=== PATIENT | male | born 2000 | race Caucasian/White ===

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

== ENCOUNTER 2018-03-24 18:49 | Inpatient (IN) | payer MEDICAID, OTHER ==
[2018-03-24 19:28] LABS: HEMATOCRIT 44.3 % (42.0-52.0); HEMOGLOBIN 15.3 g/dl (13.5-17.5); MEAN CORPUSCULAR HEMOGLOBIN 30.1 pg (27.0-33.0); MEAN CORPUSCULAR HGB CONC 34.5 g/dl (32.0-36.5); PLATELET COUNT, AUTOMATED 359 10^3/uL (150-450); RED BLOOD COUNT 5.09 10^6/uL (4.30-6.10); RED CELL DISTRIBUTION WIDTH 12.1 % (11.5-14.5); WHITE BLOOD COUNT 9.8 10^3/uL (4.0-10.0)
[2018-03-24] MEDS: NS 1,000 ML IV (19:47)
[2018-03-24 20:14] LABS: ACETAMINOPHEN LEVEL < 2.0 UG/ML (10.0-30.0); ALBUMIN 3.7 GM/DL (3.2-5.2); ALBUMIN/GLOBULIN RATIO 1.12 (1.00-1.93); ALKALINE PHOSPHATASE 83 U/L (45-117); ALT/SGPT 28 U/L (12-78); ANION GAP 9 MEQ/L (8-16); AST/SGOT 13 U/L (7-37); BILIRUBIN,DIRECT < 0.1 MG/DL (0.0-0.2); BILIRUBIN,TOTAL 0.3 MG/DL (0.2-1.0); BLOOD UREA NITROGEN 8 MG/DL (7-18); CALCIUM LEVEL 9.5 MG/DL (8.5-10.1); CARBON DIOXIDE LEVEL 26 MEQ/L (21-32); CHLORIDE LEVEL 108 MEQ/L (98-107); CREATININE FOR GFR 0.83 MG/DL (0.70-1.30); ETHYL ALCOHOL (ETHANOL) < 0.003 % (0.000-0.010); GLUCOSE, FASTING 82 MG/DL (70-100); SODIUM LEVEL 143 MEQ/L (136-145)
[2018-03-24 20:54] LABS: AMPHETAMINES LEVEL URINE NEGATIVE (NEGATIVE); BARBITURATES URINE NEGATIVE (NEGATIVE); BENZODIAZEPINES URINE NEGATIVE (NEGATIVE); CANNABINOIDS URINE NEGATIVE (NEGATIVE); COCAINE METABOLITE URINE NEGATIVE (NEGATIVE); METHADONE URINE NEGATIVE (NEGATIVE); OPIATES URINE NEGATIVE (NEGATIVE); PHENCYCLIDINE URINE NEGATIVE (NEGATIVE)
[2018-03-25] MEDS ORDERED: MAALOX 30 ML SUSP *UDC PO (02:15)
[2018-03-25] MEDS ORDERED: ACETAMINOPHEN TAB 650MG DOSE (2X325MG) PO (02:15)
[2018-03-25] MEDS ORDERED: MOM 30ML SUSPENSION UDC PO (02:15)
[2018-03-25] MEDS: LISINOPRIL 10 MG TAB PO (08:09)
[2018-03-25] MEDS: buPROPion **XL** TABLET 150MG (WELLBUTRIN XL) PO ×2 (09:00→20:22)
[2018-03-25] MEDS: busPIRone 5 MG TAB PO ×4 (09:00→20:22)
[2018-03-25] MEDS: traZODone 50 MG TAB PO (20:22)
[2018-03-26] MEDS: busPIRone 5 MG TAB PO ×3 (08:18→20:06)
[2018-03-26] MEDS: LISINOPRIL 10 MG TAB PO (08:19)
[2018-03-26] MEDS: risperiDONE 1 MG TAB PO (20:06)
[2018-03-27] MEDS: busPIRone 5 MG TAB PO ×3 (08:06→21:26)
[2018-03-27] MEDS: LISINOPRIL 10 MG TAB PO (08:06)
[2018-03-27] MEDS: risperiDONE 1 MG TAB PO (21:26)
[2018-03-28] MEDS: busPIRone 5 MG TAB PO (08:18)
[2018-03-28] MEDS: LISINOPRIL 10 MG TAB PO (08:20)
== END 2018-03-28 12:30 | disposition home or self-care (01) | DRG 751 ==
LOC: M ED INP 03-25 02:08 → M PSY 03-25 02:55 → M ED 18:49
DX: F33.9 Major depressive disorder, recurrent, unspecified (principal); F41.9 Anxiety disorder, unspecified; F81.9 Developmental disorder of scholastic skills, unspecified; Z79.899 Other long term (current) drug therapy; F17.210 Nicotine dependence, cigarettes, uncomplicated

== ENCOUNTER → 2018-04-17 | Outpatient (REF) | payer MEDICARE, MEDICAID ==
[~2018-04-17] MED LIST changes: +BUSP15TA47 PO; +BUSP5TA PO; +HYDR-3363 PO; +IBUP-1022 PO; +LISI10TA4 PO; +LORA0.5T11 PO; +RISP1TAB42 PO; +TRAZ10TA PO; +VITA50005 PO; +XYZA5TAB4 PO
[2018-04-17 18:18] LABS: ALBUMIN 3.8 GM/DL (3.2-5.2); ALT/SGPT 36 U/L (12-78); BILIRUBIN,TOTAL 0.4 MG/DL (0.2-1.0); BLOOD UREA NITROGEN 10 MG/DL (7-18); CALCIUM LEVEL 9.2 MG/DL (8.5-10.1); CARBON DIOXIDE LEVEL 24 MEQ/L (21-32); CHLORIDE LEVEL 105 MEQ/L (98-107); CHOLESTEROL LEVEL 203 MG/DL (<200); CHOLESTEROL RISK RATIO 4.951 (<5); CREATININE FOR GFR 0.79 MG/DL (0.70-1.30); GLUCOSE, FASTING 86 MG/DL (70-100); HDL CHOLESTEROL 41 MG/DL (>40); LDL CHOLESTEROL 135 MG/DL (<100); NON-HDL-C 162 MG/DL; POTASSIUM SERUM 4.5 MEQ/L (3.5-5.1); SODIUM LEVEL 140 MEQ/L (136-145); TOTAL PROTEIN 7.2 GM/DL (6.4-8.2); TRIGLYCERIDES LEVEL 136 MG/DL (<150)
== END ==
LOC: M LAB REF 17:24
PROVIDERS: ATTEND Family Medicine Addiction Medicine
DX: F41.1 Generalized anxiety disorder (principal); I10 Essential (primary) hypertension

== ENCOUNTER 2018-04-30 17:19 | Emergency (ER) | payer MEDICARE, OTHER ==
[~2018-04-30] VITALS: Ht 188 cm; Wt 150.5 kg
[~2018-04-30 17:19] MED LIST changes: -HYDR-3363 PO
[2018-04-30 17:36] VITALS: BP 146/78
[2018-04-30] MEDS ORDERED: hydrOXYzine 25 MG TAB PO STA (18:42)
[2018-04-30] MEDS ORDERED: HYDR-3363 PO (19:19)
== END 2018-04-30 19:25 | disposition home or self-care (01) ==
LOC: M ED 17:19
DX: F41.9 Anxiety disorder, unspecified (principal); F32.9 Major depressive disorder, single episode, unspecified; I10 Essential (primary) hypertension; Z72.0 Tobacco use; F12.10 Cannabis abuse, uncomplicated; Z79.899 Other long term (current) drug therapy

== ENCOUNTER 2018-07-31 02:26 | Inpatient (IN) | payer MEDICARE, MEDICAID ==
[~2018-07-31] VITALS: Ht 188 cm; Wt 145.0 kg
[~2018-07-31 02:26] MED LIST changes: +HYDR-3363 PO
[2018-07-31 03:06] LABS: BASO % 0.1 % (0.0-1.0); HEMATOCRIT 48.1 % (42.0-52.0); LYMPH # 1.2 10^3/uL (1.5-6.5); LYMPH % 5.9 % (24.0-44.0); MEAN CORPUSCULAR HEMOGLOBIN 30.6 pg (27.0-33.0); MEAN CORPUSCULAR HGB CONC 35.3 g/dl (32.0-36.5); MEAN CORPUSCULAR VOLUME 86.7 fl (80.0-96.0); MONO # 1.4 10^3/uL (0.0-0.8); MONO % 6.5 % (0.0-5.0); NEUTROPHILS # 18.2 10^3/uL (1.8-7.7); PLATELET COUNT, AUTOMATED 422 10^3/uL (150-450); RED BLOOD COUNT 5.55 10^6/uL (4.30-6.10); WHITE BLOOD COUNT 20.9 10^3/uL (4.0-10.0)
[2018-07-31] MEDS ORDERED: NS 1,000 ML IV ONE (03:30)
[2018-07-31] MEDS ORDERED: MORPHINE 10 MG/ML 1ML VIAL (J2270) IV ONE (03:30)
[2018-07-31] MEDS ORDERED: ONDANSETRON 4MG/2ML VIAL (J2405) As Ordered ONE (03:44)
[2018-07-31] MEDS: GASTROGRAFIN SOLUTION 30ML PO SCH ×2 (03:58→04:00)
[2018-07-31 03:59] LABS: ALBUMIN 4.3 GM/DL (3.2-5.2); ALT/SGPT 32 U/L (12-78); BILIRUBIN,DIRECT < 0.1 MG/DL (0.0-0.2); BILIRUBIN,TOTAL 0.4 MG/DL (0.2-1.0); BLOOD UREA NITROGEN 13 MG/DL (7-18); CALCIUM LEVEL 9.7 MG/DL (8.5-10.1); CARBON DIOXIDE LEVEL 21 MEQ/L (21-32); CHLORIDE LEVEL 105 MEQ/L (98-107); CREATININE FOR GFR 0.83 MG/DL (0.70-1.30); GLUCOSE, FASTING 160 MG/DL (70-100); LIPASE 3978 U/L (73-393); POTASSIUM SERUM 4.1 MEQ/L (3.5-5.1); SODIUM LEVEL 137 MEQ/L (136-145); TOTAL PROTEIN 7.5 GM/DL (6.4-8.2)
[2018-07-31] MEDS ORDERED: ONDANSETRON 4MG/2ML VIAL (J2405) IV ONE (04:00)
[2018-07-31 05:09] LABS: APPEARANCE, URINE HAZY (CLEAR); BACTERIA, URINE AUTO NEGATIVE (NEGATIVE); BILIRUBIN, URINE AUTO NEGATIVE (NEGATIVE); BLOOD, URINE BLOOD NEGATIVE (NEGATIVE); COLOR, URINE YELLOW (YELLOW); GLUCOSE, URINE (UA) AUTO NEGATIVE (NEGATIVE); KETONE, URINE AUTO NEGATIVE (NEGATIVE); LEUKOCYTE ESTERASE, URINE AUTO NEGATIVE (NEGATIVE); MUCUS, URINE SMALL (NEGATIVE); NITRITE, URINE AUTO NEGATIVE (NEGATIVE); PROTEIN, URINE AUTO NEGATIVE (NEGATIVE); RBC, URINE AUTO 2 /HPF (0-3); SPECIFIC GRAVITY URINE AUTO 1.031 (1.002-1.035); SQUAMOUS EPITHELIAL CELL UR AU 0 /HPF (0-6); UROBILINOGEN, URINE AUTO 0.2 mg/dL (0.0-2.0); WBC, URINE AUTO 1 /HPF (0-3)
[2018-07-31] MEDS ORDERED: LR 1,000 ML IV ONE (05:30)
[2018-07-31] MEDS ORDERED: METOCLOPRAMIDE INJ 10MG/2ML VIAL (J2765) IV ONE (05:30)
--- NOTE | 2018-07-31 05:45 | REPVR ---
EXAM: CT Abdomen and Pelvis With Contrast EXAM DATE/TIME: 07/31/2018 3:27 AM CLINICAL HISTORY: 18 years old, male; Abdominal pain; Epigastric TECHNIQUE: Imaging protocol: Axial computed tomography images of the abdomen and pelvis with intravenous contrast. Coronal and sagittal reformatted images were created and reviewed. Radiation optimization: All CT scans at this facility use at least one of these dose optimization techniques: automated exposure control; mA and/or kV adjustment per patient size (includes targeted exams where dose is matched to clinical indication); or iterative reconstruction. Contrast material: ISO; Contrast volume: 100 ml; Contrast route: AC; COMPARISON: No relevant prior studies available. FINDINGS: ABDOMEN: Liver: Normal. No mass. Gallbladder and bile ducts: Normal. No calcified stones. No ductal dilation. Pancreas: The pancreas is diffusely enlarged and heterogeneous with extensive peripancreatic stranding and edema extending inferiorly along the retroperitoneal planes. There is no obvious pancreatic ductal dilatation. Spleen: The spleen is mildly enlarged measuring 14.3 x 13.3 x 6.8 cm. Adrenals: Normal. No mass. Kidneys and ureters: Normal. No hydronephrosis. Stomach and bowel: Normal. No obstruction. No mucosal thickening. Appendix: No evidence of appendicitis. PELVIS: Bladder: Unremarkable as visualized. Reproductive: Unremarkable as visualized. ABDOMEN and PELVIS: Intraperitoneal space: Normal. No free air. No significant fluid collection. Bones/joints: No acute fracture. No dislocation. Soft tissues: Unremarkable. Vasculature: The splenic and portal veins are patent. Lymph nodes: Normal. No enlarged lymph nodes. IMPRESSION: 1. CT findings commensurate with extensive diffuse pancreatitis. No obvious tissue necrosis seen at this time. No venous thrombosis seen. No pseudoaneurysm seen. 2. Extensive pancreatic free fluid and edema extending along the retroperitoneal planes however no walled off collection seen to suggest pseudocyst. 3. Mild splenomegaly. Electronically signed by: Kendell Muñoz On 07/31/2018 05:44:54 AM
[2018-07-31] MEDS ORDERED: HYDR-3363 PO (05:56)
[2018-07-31] MEDS ORDERED: BUSP10TA PO (05:56)
[2018-07-31] MEDS ORDERED: RISP1TAB3 PO (05:56)
[2018-07-31] MEDS ORDERED: MORPHINE 4 MG/ML 1ML VIAL/SYRINGE (J2270) IV ONE (06:00)
[2018-07-31] MEDS ORDERED: dexameTHASONE 20 MG/5 ML VIAL (J1100) As Ordered ONE (06:12)
[2018-07-31] MEDS ORDERED: NS 1,000 ML IV SCH (06:30)
[2018-07-31] MEDS ORDERED: ONDANSETRON 4MG/2ML VIAL (J2405) IV PRN (06:30)
[2018-07-31] MEDS ORDERED: dexameTHASONE 20 MG/5 ML VIAL (J1100) IV ONE (06:30)
[2018-07-31] MEDS ORDERED: MORPHINE 4 MG/ML 1ML VIAL/SYRINGE (J2270) IV PRN (06:30)
--- NOTE | 2018-07-31 06:33 | HPEPDOC ---
General Date of Admission Jul 31, 2018 at 05:59 Chief Complaint The patient is a 18-year-old male admitted with a reason for visit of Pancreati tis. Source: Patient History of Present Illness 18 y/o M c/o nausea, vomiting, diffuse abdominal pain for past 1 day, no specific aggravating or relieving factor. In ER pt was found with vitals of BP 140/83, HR 105, RR 20, Temp 96.4, SpO2-98%; CT abdomen was suggestive of pancreatitis, labs showed elevated lipase, pt was given iv morphine 4 mg, 8 mg, iv reglan, NS bolus 1 liter and started on LR. Hospitalist service was consulted to admit the pt for further management. Pt was seen and examined at bedside in ER. Pt was c/o nausea and diffuse abdominal pain Home Medications Scheduled Buspirone HCl (Buspirone HCl) 10 Mg Tablet, 10 MG PO TID, (Reported) Ergocalciferol (Vitamin D2) (Vitamin D2) 50,000 Unit Cap, 50,000 UNIT PO 1XWK, (Reported) TAKES ON FRIDAYS Lisinopril (Lisinopril) 10 Mg Tab, 10 MG PO DAILY, (Reported) Risperidone (Risperidone) 1 Mg Tablet, 1 MG PO QHS, (Reported) Scheduled PRN Hydroxyzine HCl (Hydroxyzine HCl) 25 Mg Tablet, 25 MG PO QID PRN for ANXIETY, (Reported) Trazodone HCl (Trazodone HCl) 100 Mg Tab, 100 MG PO QHS PRN for SLEEP, (Reported) Allergies Coded Allergies: No Known Allergies (Unverified , 07/31/18) Past Medical History Medical History obesity, HTN, depression, anxiety, h/o inpatient psychiatry eval for depression/suicidal ideations Surgical History right testicular torsion surgery Family History reviewed, non contributory Social History * Smoker: current smoker Alcohol: Denies Drugs: denies A-FIB/CHADSVASC A-FIB History Current/History of A-Fib/PAF?: No Current Oral Anticoagulant The: No Review of Systems Other systems 10 points review of system was performed and it was negative except as per HPI Physical Examination General Exam: Positive: Alert, Cooperative Eye Exam: Positive: PERRLA, Conjunctiva & lids normal ENT Exam: Positive: Atraumatic, Mucous membr. moist/pink Neck Exam: Positive: Supple Chest Exam: Positive: Clear to auscultation, Normal air movement Heart Exam: Positive: Rate Normal, Normal S1, Normal S2 Abdomen Exam: Positive: Normal bowel sounds, Soft Extremity Exam: Positive: Normal pulses Skin Exam: Positive: Nl turgor and temperature Neuro Exam: Positive: Normal Speech, Strength at 5/5 X4 ext, Cranial Nerves 3- 12 NL Psych Exam: Positive: Mental status NL Other physical findings No abdominal tenderness, obese abdomen Vital Signs Vital Signs Date Time Temp Pulse Resp B/P (MAP) Pulse Ox O2 Delivery O2 Flow Rate FiO2 07/31/18 05:41 97.6 107 20 160/70 (100) 94 Room Air Laboratory Data Labs 24H Laboratory Tests 2 07/31/18 03:01: Immature Granulocyte % (Auto) 0.5, White Blood Count 20.9H, Red Blood Count 5.55, Hemoglobin 17.0, Hematocrit 48.1, Mean Corpuscular Volume 86.7, Mean Corpuscular Hemoglobin 30.6, Mean Corpuscular Hemoglobin Concent 35.3, Red Cell Distribution Width 12.0, Platelet Count 422, Neutrophils (%) (Auto) 87.0H, Lymphocytes (%) (Auto) 5.9L, Monocytes (%) (Auto) 6.5H, Eosinophils (%) (Auto) 0.0, Basophils (%) (Auto) 0.1, Neutrophils # (Auto) 18.2H, Lymphocytes # (Auto) 1.2L, Monocytes # (Auto) 1.4H, Eosinophils # (Auto) 0.0, Basophils # (Auto) 0.0, Nucleated Red Blood Cells % (auto) 0.0, Anion Gap 11, Calcium Level 9.7, As partate Amino Transf (AST/SGOT) 15, Alanine Aminotransferase (ALT/SGPT) 32, Alkaline Phosphatase 86, Total Bilirubin 0.4, Direct Bilirubin < 0.1, Total Protein 7.5, Albumin 4.3, Albumin/Globulin Ratio 1.34, Lipase 3978H 07/31/18 04:56: Urine Appearance HAZY, Urine Color YELLOW, Urine pH 5.0, Urine Specific [place] 1.031, Urine Protein NEGATIVE, Urine Glucose (UA) NEGATIVE, Urine Ketones NEGATIVE, Urine Urobilinogen 0.2, Urine Bilirubin NEGATIVE, Urine Leukocyte Esterase NEGATIVE, Urine Blood NEGATIVE, Urine Nitrite NEGATIVE, Urine WBC (Auto) 1, Urine RBC (Auto) 2, Urine Hyaline Casts (Auto) 0, Urine Bacteria (Auto) NEGATIVE, Urine Squamous Epithelial Cells 0, Urine Mucus (Auto) SMALL, Urine Sperm (Auto) CBC/BMP Laboratory Tests 07/31/18 03:01 Red Blood Count 5.55, Mean Corpuscular Volume 86.7, Mean Corpuscular Hemoglobin 30.6, Mean Corpuscular Hemoglobin Concent 35.3, Red Cell Distribution Width 12.0, Neutrophils (%) (Auto) 87.0 H, Lymphocytes (%) (Auto) 5.9 L, Monocytes (%) (Auto) 6.5 H, Eosinophils (%) (Auto) 0.0, Basophils (%) (Auto) 0.1, Neutrophils # (Auto) 18.2 H, Lymphocytes # (Auto) 1.2 L, Monocytes # (Auto) 1.4 H, Eosinophils # (Auto) 0.0, Basophils # (Auto) 0.0 Assessment/Plan 18 y/o M c/o nausea, vomiting, diffuse abdominal pain Labs and imaging studies reviewed. wBC 20.9 Impression- acute pancreatitis Problems (1) Pancreatitis Status: Acute Problem Text: unclear etiology no recent medication change. will f/u lipid profile NPO, iv morphine, iv zofran prn, iv NS infusion will continue to monitor patient clinically (2) Obesity Status: Chronic Problem Text: supportive care (3) Nicotine dependence Status: Chronic Problem Text: pt was counselled about smoking cessation (4) Anxiety Status: Chronic Response to Treatment: Stable Problem Text: will resume home meds (5) Depression Status: Chronic Response to Treatment: Stable Problem Text: will resume home meds (6) Leucocytosis Status: Acute Problem Text: most probably reactive will f/u repeat labs UA negative Plan / VTE VTE Prophylaxis Ordered?: Yes ORACIO BISHOP MD Jul 31, 2018 06:33
[2018-07-31] MEDS ORDERED: hydrOXYzine 25 MG TAB PO PRN (06:45)
[2018-07-31] MEDS: HEPARIN SOD (PORCINE) 5000 UNITS/ML VIAL SQ SCH ×3 (07:18→21:26)
[2018-07-31 07:22] VITALS: BP 154/84
[2018-07-31 07:38] LABS: CHOLESTEROL LEVEL 206 MG/DL (<200); CHOLESTEROL RISK RATIO 4.904 (<5); HDL CHOLESTEROL 42 MG/DL (>40); LDL CHOLESTEROL 147 MG/DL (<100); NON-HDL-C 164 MG/DL; TRIGLYCERIDES LEVEL 87 MG/DL (<150)
[2018-07-31 08:00] VITALS: BP 138/82
[2018-07-31] MEDS ORDERED: SODIUM CHLORIDE 0.9% 1000ML IV STA (08:25)
[2018-07-31] MEDS: busPIRone 10 MG TAB PO SCH ×3 (08:40→20:53)
[2018-07-31] MEDS: NICOTINE 21MG/24HR 1 EA TRANSDERMAL TD SCH (08:40)
[2018-07-31] MEDS ORDERED: LISINOPRIL 10 MG TAB PO SCH (09:00)
[2018-07-31 09:05] VITALS: BP 160/92
[2018-07-31] MEDS: NS 1,000 ML IV SCH ×4 (11:00→22:41)
--- NOTE | 2018-07-31 11:53 | IPNPDOC ---
Date Seen The patient was seen on 07/31/18. Progress Note SUBJECTIVE: Patient was seen and examined this morning. He continues to have significant pain requiring IV morphine. He continues to have nausea. He has not received adequate fluid resuscitation given his degree of pancreatitis. The patient denies having any other episodes of pancreatitis in the past. He denies any association with food. He denies any recent changes in his home medications. He states that he does not drink alcohol OBJECTIVE PHYSICAL EXAMINATION: VITAL SIGNS: Please see below. GENERAL: Awake alert and oriented. He does not appear in acute distress although he appears uncomfortable and ill appearing HEENT: Atraumatic normocephalic. Eyes are nonicteric. Trachea is midline. Dentition is fair CARDIOVASCULAR: Normal S1, S2. Regular rate and rhythm. No clicks, rubs, or mu rmurs noted on examination RESPIRATORY: Clear vesicular lung sounds bilaterally. Good respiratory effort. No wheezes, rhonci, or rales ABDOMINAL: Obese, soft, nondistended. Diffuse tenderness to palpation of all four quadrants although more so in mid-epigastric region. No rebound tenderness or guarding. No hernias EXTREMITIES: No edema. 2+ posterior tibial pulses bilaterally. 2+ radial pulses bilaterally NEUROLOGICAL: No focal neurological deficits PSYCHOLOGICAL: Mood and affect appear appropriate for situation LABORATORY DATA, IMAGING STUDIES, MICROBIOLOGY: Please see below. DVT prophylaxis ordered?: YES ASSESSMENT AND PLAN: Patient is a 18 year old male with a past medical history significant for hypertension, depression, anxiety, and tobacco abuse who presented to the [facility] ER with diffuse abdominal pain and nausea for 24 hours. The patient denies any inciting factors and states that the pain had come on suddenly. In the ER the patient was found to have diffuse pancreatitis by CT imaging as well as an elevated lipase. PROBLEMS: 1. Acute Pancreatitis -Patient had presented with CT imaging and laboratory values consistent and diagnostic for pancreatitis. He has been made strictly NPO. Initially he was receiving NS at 125ml/hr. Given his degree of pancreatitis he would benefit from more aggressive IV hydration. Patient has received an additional 2L bolus NS and will be continued with maintenance fluid at a rate of 250mls/hr. Aggressive fluid hydration within the first 24-48 hours in acute pancreatitis has been shown to have a mortality benefit as well as prevention of acute tubular necrosis and hypotension. Persistent hemoconcentration has been associated with necrotizing pancreatitis in the literature. Patient will therefore be continued with aggressive IV hydration for 24-48 hours. Continue to monitor BUN, HR, and BP. -At this time the patient does not have a discernable cause of his pancreatitis. He is on Risperidone which is a Class IV drug for pancreatitis as well as Lisinopril which is a Class III drug for pancreatitis. His pancreatitis may also be idiopathic. -IV Morphine 4mg Q2HPRN -IV Zofran 8mg Q4HP 2. Depression/Anxiety -Continue Buspar 10mg TID -Continue Risperidone 1mg QHS -Atarax 25mg QID PRN -Trazodone 100 mg QHS 3. Tobacco Abuse -Nicotine patch 21 mg 4. DVT Prophylaxis -Heparin SQ A-FIB/CHADSVASC A-FIB History Current/History of A-Fib/PAF?: No VS, I&O, 24H, Fishbone Vital Signs/I&O Vital Signs Date Time Temp Pulse Resp B/P (MAP) Pulse Ox O2 Delivery O2 Flow Rate FiO2 07/31/18 10:10 16 07/31/18 09:05 98.2 87 160/92 (114) 95 07/31/18 06:37 Room Air I&O- Last 24 Hours up to 6 AM 07/31/18 06:00 Intake Total 1000 ml Output Total 1 ml Balance 999 ml Laboratory Data 24H LABS Laboratory Tests 2 07/31/18 03:01: Immature Granulocyte % (Auto) 0.5, White Blood Count 20.9H, Red Blood Count 5.55, Hemoglobin 17.0, Hematocrit 48.1, Mean Corpuscular Volume 86.7, Mean Corpuscular Hemoglobin 30.6, Mean Corpuscular Hemoglobin Concent 35.3, Red Cell Distribution Width 12.0, Platelet Count 422, Neutrophils (%) (Auto) 87.0H, Lymphocytes (%) (Auto) 5.9L, Monocytes (%) (Auto) 6.5H, Eosinophils (%) (Auto) 0.0, Basophils (%) (Auto) 0.1, Neutrophils # (Auto) 18.2H, Lymphocytes # (Auto) 1.2L, Monocytes # (Auto) 1.4H, Eosinophils # (Auto) 0.0, Basophils # (Auto) 0.0, Nucleated Red Blood Cells % (auto) 0.0, Anion Gap 11, Calcium Level 9.7, Aspartate Amino Transf (AST/SGOT) 15, Alanine Aminotransferase (ALT/SGPT) 32, Alkaline Phosphatase 86, Total Bilirubin 0.4, Direct Bilirubin < 0.1, Total Pro tein 7.5, Albumin 4.3, Albumin/Globulin Ratio 1.34, Triglycerides Level 87, Total Cholesterol 206H, LDL Cholesterol 147H, Non-HDL Cholesterol (LDL + VLDL) 164, Total HDL Cholesterol 42, Cholesterol/HDL Ratio 4.904, Lipase 3978H 07/31/18 04:56: Urine Appearance HAZY, Urine Color YELLOW, Urine pH 5.0, Urine Specific [place] 1.031, Urine Protein NEGATIVE, Urine Glucose (UA) NEGATIVE, Urine Ketones NEGATIVE, Urine Urobilinogen 0.2, Urine Bilirubin NEGATIVE, Urine Leukocyte Esterase NEGATIVE, Urine Blood NEGATIVE, Urine Nitrite NEGATIVE, Urine WBC (Auto) 1, Urine RBC (Auto) 2, Urine Hyaline Casts (Auto) 0, Urine Bacteria (Auto) NEGATIVE, Urine Squamous Epithelial Cells 0, Urine Mucus (Auto) SMALL, Urine Sperm (Auto) CBC/BMP Laboratory Tests 07/31/18 03:01 Red Blood Count 5.55, Mean Corpuscular Volume 86.7, Mean Corpuscular Hemoglobin 30.6, Mean Corpuscular Hemoglobin Concent 35.3, Red Cell Distribution Width 12.0, Neutrophils (%) (Auto) 87.0 H, Lymphocytes (%) (Auto) 5.9 L, Monocytes (%) (Auto) 6.5 H, Eosinophils (%) (Auto) 0.0, Basophils (%) (Auto) 0.1, Neutrophils # (Auto) 18.2 H, Lymphocytes # (Auto) 1.2 L, Monocytes # (Auto) 1.4 H, Eosinoph ils # (Auto) 0.0, Basophils # (Auto) 0.0 Microbiology Microbiology 07/31/18 Urine Culture, Received Pending GME ATTESTATION GME ATTESTATION My faculty preceptor for this patient encounter was physically present during the encounter and was fully available. All aspects of the patient interview, examination, medical decision making process, and medical care plan development were reviewed and approved by the faculty preceptor. The faculty preceptor is aware and concurs with the plan as stated in the body of this note and will attest to such by his/her cosignature. ATTENDING NOTE I saw and evaluated the patient. I agree with the findings and plan of care as documented in the resident's note VINCENT DONATO DO Jul 31, 2018 11:53 ABIOLA ABEL MD August 01, 2018 16:22
[2018-07-31 14:00] VITALS: BP 140/96
[2018-07-31 14:15] LABS: HEMATOCRIT 46.7 % (42.0-52.0); HEMOGLOBIN 16.2 g/dl (13.5-17.5); MEAN CORPUSCULAR HEMOGLOBIN 30.6 pg (27.0-33.0); MEAN CORPUSCULAR HGB CONC 34.7 g/dl (32.0-36.5); MEAN CORPUSCULAR VOLUME 88.3 fl (80.0-96.0); PLATELET COUNT, AUTOMATED 390 10^3/uL (150-450); RED BLOOD COUNT 5.29 10^6/uL (4.30-6.10); WHITE BLOOD COUNT 23.4 10^3/uL (4.0-10.0)
[2018-07-31] MEDS: MORPHINE 4 MG/ML 1ML VIAL/SYRINGE (J2270) IV PRN ×3 (15:02→20:57)
[2018-07-31 15:37] LABS: ALBUMIN 3.6 GM/DL (3.2-5.2); ALT/SGPT 28 U/L (12-78); BILIRUBIN,TOTAL 0.4 MG/DL (0.2-1.0); BLOOD UREA NITROGEN 9 MG/DL (7-18); CALCIUM LEVEL 8.8 MG/DL (8.5-10.1); CARBON DIOXIDE LEVEL 27 MEQ/L (21-32); CHLORIDE LEVEL 106 MEQ/L (98-107); CREATININE FOR GFR 0.88 MG/DL (0.70-1.30); GLUCOSE, FASTING 130 MG/DL (70-100); POTASSIUM SERUM 4.5 MEQ/L (3.5-5.1); SODIUM LEVEL 137 MEQ/L (136-145)
[2018-07-31 20:00] VITALS: BP 156/90
[2018-07-31] MEDS: risperiDONE 1 MG TAB PO SCH (20:53)
[2018-07-31] MEDS: traZODone 100 MG TAB PO PRN (20:53)
[2018-08-01] MEDS: MORPHINE 4 MG/ML 1ML VIAL/SYRINGE (J2270) IV PRN ×7 (00:26→22:12)
[2018-08-01] MEDS: NS 1,000 ML IV SCH ×6 (02:42→22:42)
[2018-08-01 04:00] VITALS: BP 141/86
[2018-08-01] MEDS: HEPARIN SOD (PORCINE) 5000 UNITS/ML VIAL SQ SCH ×3 (05:14→22:17)
[2018-08-01 08:17] LABS: HEMATOCRIT 42.7 % (42.0-52.0); HEMOGLOBIN 14.5 g/dl (13.5-17.5); MEAN CORPUSCULAR HEMOGLOBIN 30.3 pg (27.0-33.0); MEAN CORPUSCULAR VOLUME 89.3 fl (80.0-96.0); PLATELET COUNT, AUTOMATED 338 10^3/uL (150-450); RED BLOOD COUNT 4.78 10^6/uL (4.30-6.10)
[2018-08-01 08:38] LABS: ALBUMIN 3.4 GM/DL (3.2-5.2); ALT/SGPT 21 U/L (12-78); BILIRUBIN,TOTAL 0.7 MG/DL (0.2-1.0); BLOOD UREA NITROGEN 7 MG/DL (7-18); CALCIUM LEVEL 8.8 MG/DL (8.5-10.1); CARBON DIOXIDE LEVEL 26 MEQ/L (21-32); CHLORIDE LEVEL 105 MEQ/L (98-107); CREATININE FOR GFR 0.86 MG/DL (0.70-1.30); GLUCOSE, FASTING 102 MG/DL (70-100); POTASSIUM SERUM 4.2 MEQ/L (3.5-5.1); SODIUM LEVEL 137 MEQ/L (136-145); TOTAL PROTEIN 6.7 GM/DL (6.4-8.2)
[2018-08-01] MEDS: NICOTINE 21MG/24HR 1 EA TRANSDERMAL TD SCH (08:42)
[2018-08-01] MEDS: busPIRone 10 MG TAB PO SCH ×3 (08:42→20:24)
--- NOTE | 2018-08-01 11:30 | IPNPDOC ---
Date Seen The patient was seen on 08/01/18. Progress Note SUBJECTIVE: Patient was seen and examined this morning. He continues to have abdominal pain and discomfort. He has indicated that he was hungry however, developed more pain on liquids. Patient states he still has nausea although no vomiting. He denies shortness of breath. He states that he has difficulty getting comfortable OBJECTIVE PHYSICAL EXAMINATION: VITAL SIGNS: Please see below. GENERAL: Awake, alert and oriented. He is not in acute distress. He does appear ill and uncomfortable. HEENT: Atraumatic, normocephalic. Eyes are nonicteric. Trachea is midline. Mucous membranes appear dry CARDIOVASCULAR: Normal S1, S2. Tachycardic. Regular rhythm. No clicks, rubs, or murmurs RESPIRATORY: Clear vesicular breath sounds bilaterally with good respiratory effort. No wheezes, rhonci, or rales. No crackles ABDOMINAL: Obese, soft, nondistended. Diffuse tenderness to palpation of all 4 quadrants more localized to the midepigastric region. No rebound tenderness or guarding. Hypoactive bowel sounds EXTREMITIES: Slight 1+ edema. Full and equal pulses in bilateral upper and lower extremities NEUROLOGICAL: No focal neurological deficit PSYCHOLOGICAL: Mood and affect appear appropriate for situation LABORATORY DATA, IMAGING STUDIES, MICROBIOLOGY: Please see below. DVT prophylaxis ordered?: YES ASSESSMENT AND PLAN: Patient is a 18 year old male with a past medical history significant for hypertension, depression, anxiety, and tobacco abuse who presented to the [facility] ER with diffuse abdominal pain and nausea for 24 hours. The patient denies any inciting factors and states that the pain had come on suddenly. In the ER the patient was found to have diffuse pancreatitis by CT im aging as well as an elevated lipase. PROBLEMS: 1. Acute Pancreatitis -Patient had presented with CT imaging and laboratory values consistent and diagnostic for pancreatitis. He has been made strictly NPO. Initially he was receiving NS at 125ml/hr. Given his degree of pancreatitis he would benefit from more aggressive IV hydration. Patient has received an additional 2L bolus NS and will be continued with maintenance fluid at a rate of 250mls/hr. Aggressive fluid hydration within the first 24-48 hours in acute pancreatitis has been shown to have a mortality benefit as well as prevention of acute tubular necrosis and hypotension. Persistent hemoconcentration has been associated with necrotizing pancreatitis in the literature. Patient will therefore be continued with aggressive IV hydration for 24-48 hours. Continue to monitor BUN, HR, and BP. -At this time the patient does not have a discernable cause of his pancreatitis. He is on Risperidone which is a Class IV drug for pancreatitis as well as Lisinopril which is a Class III drug for pancreatitis. His pancreatitis may also be idiopathic. -IV Morphine 4mg Q2HPRN -IV Zofran 8mg Q4HP -Attempt to advance patient to clear liquids however, he developed worsening pain. Will remain NPO. His mucous membranes do appear dry despite IV fluid hydration. Will continue with IV hydration at 250mls/hr. Assess clinically and advance diet when patient has decrease in pain severity. 2. Depression/Anxiety -Continue Buspar 10mg TID -Continue Risperidone 1mg QHS -Atarax 25mg QID PRN -Trazodone 100 mg QHS 3. Tobacco Abuse -Nicotine patch 21 mg 4. DVT Prophylaxis -Heparin SQ A-FIB/CHADSVASC A-FIB History Current/History of A-Fib/PAF?: No VS, I&O, 24H, Fishbone Vital Signs/I&O Vital Signs Date Time Temp Pulse Resp B/P (MAP) Pulse Ox O2 Delivery O2 Flow Rate FiO2 08/01/18 08:52 18 08/01/18 04:00 97.7 105 141/86 (104) 96 07/31/18 06:37 Room Air I&O- Last 24 Hours up to 6 AM 08/01/18 06:00 Intake Total 5500 ml Output Total 2 ml Balance 5498 ml Laboratory Data 24H LABS Laboratory Tests 2 07/31/18 13:56: Anion Gap 4L, Blood Urea Nitrogen 9, Creatinine 0.88, Sodium Level 137, Potassium Level 4.5, Chloride Level 106, Carbon Dioxide Level 27, Calcium Level 8.8, Aspartate Amino Transf (AST/SGOT) 14, Alanine Aminotransferase (ALT/SGPT) 28, Alkaline Phosphatase 72, Total Bilirubin 0.4, Total Protein 7.0, Albumin 3.6, Albumin/Globulin Ratio 1.06 07/31/18 14:01: Nucleated Red Blood Cells % (auto) 0.0 08/01/18 07:42: Anion Gap 6L, Blood Urea Nitrogen 7, Creatinine 0.86, Sodium Level 137, Potassium Level 4.2, Chloride Level 105, Carbon Dioxide Level 26, Calcium Level 8.8, Aspartate Amino Transf (AST/SGOT) 16, Alanine Aminotransferase (ALT/SGPT) 21, Alkaline Phosphatase 69, Total Bilirubin 0.7#, Total Protein 6.7, Albumin 3.4, Albumin/Globulin Ratio 1.03, Nucleated Red Blood Cells % (auto) 0.0 CBC/BMP Laboratory Tests 07/31/18 13:56 Calcium Level 8.8, Aspartate Amino Transf (AST/SGOT) 14, Alanine Aminotransferase (ALT/SGPT) 28, Alkaline Phosphatase 72, Total Bilirubin 0.4, Total Protein 7.0, Albumin 3.6 07/31/18 14:01 Red Blood Count 5.29, Mean Corpuscular Volume 88.3, Mean Corpuscular Hemoglobin 30.6, Mean Corpuscular Hemoglobin Concent 34.7, Red Cell Distribution Width 12.4 08/01/18 07:42 Calcium Level 8.8, Aspartate Amino Transf (AST/SGOT) 16, Alanine Aminotransferase (ALT/SGPT) 21, Alkaline Phosphatase 69, Total Bilirubin 0.7 #, Total Protein 6.7, Albumin 3.4, Red Blood Count 4.78, Mean Corpuscular Volume 89.3, Mean Corpuscular Hemoglobin 30.3, Mean Corpuscular Hemoglobin Concent 34.0, Red Cell Distribution Width 12.5 Microbiology Microbiology 07/31/18 Urine Culture - Final, Complete GME ATTESTATION GME ATTESTATION My faculty preceptor for this patient encounter was physically present during the encounter and was fully available. All aspects of the patient interview, examination, medical decision making process, and medical care plan development were reviewed and approved by the faculty preceptor. The faculty preceptor is aware and concurs with the plan as stated in the body of this note and will attest to such by his/her cosignature. ATTENDING NOTE I saw and evaluated the patient. I agree with the findings and plan of care as documented in the resident's note VINCENT DONATO DO August 01, 2018 11:30 ABIOLA ABEL MD August 04, 2018 16:10
[2018-08-01 14:00] VITALS: BP 158/94
[2018-08-01 20:00] VITALS: BP 158/90
[2018-08-01] MEDS: risperiDONE 1 MG TAB PO SCH (20:24)
[2018-08-02] MEDS: NS 1,000 ML IV SCH ×3 (02:24→15:04)
[2018-08-02] MEDS: MORPHINE 4 MG/ML 1ML VIAL/SYRINGE (J2270) IV PRN ×2 (02:25→06:44)
[2018-08-02 04:00] VITALS: BP 156/94
[2018-08-02] MEDS: HEPARIN SOD (PORCINE) 5000 UNITS/ML VIAL SQ SCH ×3 (05:24→21:13)
[2018-08-02 07:24] LABS: HEMATOCRIT 36.6 % (42.0-52.0); HEMOGLOBIN 12.5 g/dl (13.5-17.5); MEAN CORPUSCULAR HEMOGLOBIN 30.6 pg (27.0-33.0); MEAN CORPUSCULAR HGB CONC 34.2 g/dl (32.0-36.5); MEAN CORPUSCULAR VOLUME 89.7 fl (80.0-96.0); PLATELET COUNT, AUTOMATED 287 10^3/uL (150-450); RED BLOOD COUNT 4.08 10^6/uL (4.30-6.10); WHITE BLOOD COUNT 20.2 10^3/uL (4.0-10.0)
[2018-08-02 07:43] LABS: ALBUMIN 2.9 GM/DL (3.2-5.2); ALT/SGPT 18 U/L (12-78); BLOOD UREA NITROGEN 6 MG/DL (7-18); CALCIUM LEVEL 8.5 MG/DL (8.5-10.1); CARBON DIOXIDE LEVEL 27 MEQ/L (21-32); CHLORIDE LEVEL 104 MEQ/L (98-107); CREATININE FOR GFR 0.72 MG/DL (0.70-1.30); GLUCOSE, FASTING 91 MG/DL (70-100); POTASSIUM SERUM 3.5 MEQ/L (3.5-5.1); SODIUM LEVEL 136 MEQ/L (136-145); TOTAL PROTEIN 6.6 GM/DL (6.4-8.2)
[2018-08-02 07:44] LABS: BILIRUBIN,TOTAL 2.2 MG/DL (0.2-1.0)
[2018-08-02] MEDS: busPIRone 10 MG TAB PO SCH ×3 (09:13→21:13)
[2018-08-02] MEDS: NICOTINE 21MG/24HR 1 EA TRANSDERMAL TD SCH (09:14)
--- NOTE | 2018-08-02 10:56 | IPNPDOC ---
Date Seen The patient was seen on 08/02/18. Progress Note SUBJECTIVE: Patient was seen and examined this morning. He continues to complain of abdominal pain/discomfort. He is unable to tolerate clear liquids as it causes pain. He denies any vomiting but does have some nausea. He denies any fevers or chills. He denies any chest pain. There have been no adverse events reported overnight OBJECTIVE PHYSICAL EXAMINATION: VITAL SIGNS: Please see below. GENERAL: Awake, alert, and oriented. He is not in acute distress. He appears uncomfortable. He goes between standing to sitting while grasping his abdomen. HEENT: Atruamatic normocephalic. Eyes are noniceteric. Mucous membranes are slightly dry improved from yesterday. Trachea is midlinee CARDIOVASCULAR: Normal S1, S2. Tachycardic with a normal rhythm. No clicks, rubs, or murmurs noted on examination RESPIRATORY: Clear vesicular lung sounds bilaterally. Good respiratory effort. No wheezes, rhonci, or rales. No crackles ABDOMINAL: Obese, soft, nondistended. Patient has tenderness to palpation of LUQ, RUQ and midepigastric region. No rebound tenderness or guarding. Hypoactive bowel sounds. Bruising on abdomen at site of heparin injection EXTREMITIES: Slight 1+ edema. Full and equal pulses in bilateral upper and lower extremities NEUROLOGICAL: No focal neurological deficits PSYCHOLOGICAL: Slightly flat affect. Mood appears appropriate for situation LABORATORY DATA, IMAGING STUDIES, MICROBIOLOGY: Please see below. DVT prophylaxis ordered?: YES ASSESSMENT AND PLAN: Patient is a 18 year old male with a past medical history significant for hypertension, depression, anxiety, and tobacco abuse who presented to the [facility] ER with diffuse abdominal pain and nausea for 24 hours. The patient denies any inciting factors and states that the pain had come on suddenly. In the ER the patient was found to have diffuse pancreatitis by CT imaging as well as an elevated lipase. PROBLEMS: 1. Acute Pancreatitis -Patient has been adequately volume resuscitated. His BUN, Cr have remained within normal limits. The patients Hgb has decreased today likely 2/2 to dilution. Will decrease fluids. Will D/C once patient tolerates clear liquids diet. -At this time the patient does not have a discernable cause of his pancreatitis. He is on Risperidone which is a Class IV drug for pancreatitis as well as Lisinopril which is a Class III drug for pancreatitis. His pancreatitis may also be idiopathic. Patient may have an anatomical cause of his pancreatitis. -Patient continues to be in pain however, is improving. The patient has been drinking from the bathroom sink and has therefore advanced himself to a clear liquid diet. Although he still has some pain, he has not had any vomiting. We will advance his diet to clear liquids. His IV fluids have been decreased to 100mls/hr. Once patient tolerates a clear liquid diet, IV fluids will be discontinued -Patient will started 2 tabs percocet q4h PO. IV morphine will be discontinued. 2. Depression/Anxiety -Continue Buspar 10mg TID -Continue Risperidone 1mg QHS -Atarax 25mg QID PRN -Trazodone 100 mg QHS 3. Tobacco Abuse -Nicotine patch 21 mg 4. DVT Prophylaxis -Heparin SQ A-FIB/CHADSVASC A-FIB History Current/History of A-Fib/PAF?: No VS, I&O, 24H, Fishbone Vital Signs/I&O Vital Signs Date Time Temp Pulse Resp B/P (MAP) Pulse Ox O2 Delivery O2 Flow Rate FiO2 08/02/18 06:54 18 08/02/18 04:00 99.5 112 156/94 (114) 96 07/31/18 06:37 Room Air I&O- Last 24 Hours up to 6 AM 08/02/18 05:59 Intake Total 2750 ml Balance 2750 ml Laboratory Data 24H LABS Laboratory Tests 2 08/02/18 06:37: Nucleated Red Blood Cells % (auto) 0.0, Anion Gap 5L, Blood Urea Nitrogen 6L, Creatinine 0.72, Sodium Level 136, Potassium Level 3.5, Chloride Level 104, Carbon Dioxide Level 27, Calcium Level 8.5, Aspartate Amino Transf (AST/SGOT) 14, Alanine Aminotransferase (ALT/SGPT) 18, Alkaline Phosphatase 65, Total Bilirubin 2.2#H, Total Protein 6.6, Albumin 2.9L, Albumin/Globulin Ratio 0.78L CBC/BMP Laboratory Tests 08/02/18 06:37 Red Blood Count 4.08 L, Mean Corpuscular Volume 89.7, Mean Corpuscular Hemoglobin 30.6, Mean Corpuscular Hemoglobin Concent 34.2, Red Cell Distribution Width 12.3, Calcium Level 8.5, Aspartate Amino Transf (AST/SGOT) 14, Alanine Aminotransferase (ALT/SGPT) 18, Alkaline Phosphatase 65, Total Bilirubin 2.2 #H, Total Protein 6.6, Albumin 2.9 L Microbiology Microbiology 07/31/18 Urine Culture - Final, Complete GME ATTESTATION GME ATTESTATION My faculty preceptor for this patient encounter was physically present during the encounter and was fully available. All aspects of the patient interview, examination, medical decision making process, and medical care plan development were reviewed and approved by the faculty preceptor. The faculty preceptor is aware and concurs with the plan as stated in the body of this note and will attest to such by his/her cosignature. ATTENDING NOTE I saw and evaluated the patient. I agree with the findings and plan of care as documented in the resident's note VINCENT DONATO DO August 02, 2018 09:49 ABIOLA ABEL MD August 04, 2018 16:40
[2018-08-02] MEDS: PERCOCET 5MG/325MG TAB PO PRN ×2 (11:30→18:37)
[2018-08-02 14:00] VITALS: BP 160/86
[2018-08-02 18:00] VITALS: BP 146/85
[2018-08-02] MEDS: traZODone 100 MG TAB PO PRN (21:13)
[2018-08-02] MEDS: risperiDONE 1 MG TAB PO SCH (21:13)
[2018-08-02 22:00] VITALS: BP 155/90
[2018-08-03] MEDS: PERCOCET 5MG/325MG TAB PO PRN ×4 (02:09→20:47)
[2018-08-03 06:00] VITALS: BP 148/90
[2018-08-03] MEDS: HEPARIN SOD (PORCINE) 5000 UNITS/ML VIAL SQ SCH ×3 (06:02→20:46)
[2018-08-03 07:06] LABS: HEMOGLOBIN 11.5 g/dl (13.5-17.5); MEAN CORPUSCULAR HEMOGLOBIN 30.1 pg (27.0-33.0); MEAN CORPUSCULAR HGB CONC 33.8 g/dl (32.0-36.5); PLATELET COUNT, AUTOMATED 303 10^3/uL (150-450); RED BLOOD COUNT 3.82 10^6/uL (4.30-6.10); WHITE BLOOD COUNT 17.9 10^3/uL (4.0-10.0)
[2018-08-03 07:27] LABS: ALBUMIN 2.7 GM/DL (3.2-5.2); ALT/SGPT 26 U/L (12-78); BILIRUBIN,TOTAL 3.5 MG/DL (0.2-1.0); BLOOD UREA NITROGEN 6 MG/DL (7-18); CALCIUM LEVEL 8.7 MG/DL (8.5-10.1); CARBON DIOXIDE LEVEL 28 MEQ/L (21-32); CHLORIDE LEVEL 105 MEQ/L (98-107); CREATININE FOR GFR 0.75 MG/DL (0.70-1.30); GLUCOSE, FASTING 87 MG/DL (70-100); POTASSIUM SERUM 3.4 MEQ/L (3.5-5.1); SODIUM LEVEL 137 MEQ/L (136-145); TOTAL PROTEIN 6.5 GM/DL (6.4-8.2)
[2018-08-03] MEDS: busPIRone 10 MG TAB PO SCH ×3 (09:06→20:47)
[2018-08-03] MEDS: NICOTINE 21MG/24HR 1 EA TRANSDERMAL TD SCH (09:07)
[2018-08-03 14:00] VITALS: BP 150/88
--- NOTE | 2018-08-03 14:34 | IPNPDOC ---
Date Seen The patient was seen on 08/03/18. Progress Note SUBJECTIVE: Patient was seen and examined this morning. When asked if he is in pain the patient responds "not now". He has tolerated clear liquids well and has not had nausea or vomiting. OBJECTIVE PHYSICAL EXAMINATION: VITAL SIGNS: Please see below. GENERAL: Awake alert and oriented. Appears in no acute distress. Sitting in chair comfortably HEENT: Atrumatic, normocephalic. eyes are nonicteric. Trachea is midline. Mucous membranes are pink and moist. CARDIOVASCULAR: Normal S1, S2. Tachycardic with a normal rhythm. No clicks, rubs, or murmurs noted on examination RESPIRATORY: Clear vesicular lung sounds bilaterally. Good respiratory effort. No wheezes, rhonci, or rales. No crackles ABDOMINAL: Obese, soft, nondistended. Patient has tenderness to palpation of LUQ, RUQ and midepigastric region. No rebound tenderness or guarding. Hypoactive bowel sounds. Bruising on abdomen at site of heparin injection EXTREMITIES: Slight 1+ edema. Full and equal pulses in bilateral upper and lower extremities NEUROLOGICAL: No focal neurological deficits PSYCHOLOGICAL: Slightly flat affect. Mood appears appropriate for situation LABORATORY DATA, IMAGING STUDIES, MICROBIOLOGY: Please see below. DVT prophylaxis ordered?: YES ASSESSMENT AND PLAN: Patient is a 18 year old male with a past medical history significant for hypertension, depression, anxiety, and tobacco abuse who presented to the [facility] ER with diffuse abdominal pain and nausea for 24 hours. The patient denies any inciting factors and states that the pain had come on suddenly. In the ER the patient was found to have diffuse pancreatitis by CT imaging as well as an elevated lipase. PROBLEMS: 1. Acute Pancreatitis -Patient has been adequately volume resuscitated. His BUN, Cr have remained within normal limits. The patients Hgb has decreased today likely 2/2 to dilution. Will decrease fluids. Will D/C once patient tolerates clear liquids diet. -At this time the patient does not have a discernable cause of his panc reatitis. He is on Risperidone which is a Class IV drug for pancreatitis as well as Lisinopril which is a Class III drug for pancreatitis. His pancreatitis may also be idiopathic. Patient may have an anatomical cause of his pancreatitis. -Patient has been tolerating clear liquids with no nausea or vomiting. His pain appears to be under control. Will advance diet to BRAT. 2. Depression/Anxiety -Continue Buspar 10mg TID -Continue Risperidone 1mg QHS -Atarax 25mg QID PRN -Trazodone 100 mg QHS 3. Tobacco Abuse -Nicotine patch 21 mg 4. Anemia -Patients hemoglobin appears to be trending down. He has gotten a plenty of IV fluid during his admission and this is likely dilutional. Will continue to monitor. His total Bilirubin has been elevated although this is seen with acute pancreatitis. Will continue to trend. 5. DVT Prophylaxis -Heparin SQ DISPOSITION: Patient is improving clinically. Will likely discharge 24-48 hours A-FIB/CHADSVASC A-FIB History Current/History of A-Fib/PAF?: No VS, I&O, 24H, Fishbone Vital Signs/I&O Vital Signs Date Time Temp Pulse Resp B/P (MAP) Pulse Ox O2 Delivery O2 Flow Rate FiO2 08/03/18 09:37 20 08/03/18 06:00 98.7 108 148/90 (109) 93 07/31/18 06:37 Room Air I&O- Last 24 Hours up to 6 AM 08/03/18 05:59 Intake Total 4785 ml Output Total 0 ml Balance 4785 ml Laboratory Data 24H LABS Laboratory Tests 2 08/03/18 06:40: Nucleated Red Blood Cells % (auto) 0.0, Anion Gap 4L, Blood Urea Nitrogen 6L, Creatinine 0.75, Sodium Level 137, Potassium Level 3.4L, Chloride Level 105, Carbon Dioxide Level 28, Calcium Level 8.7, Aspartate Amino Transf (AST/SGOT) 22, Alanine Aminotransferase (ALT/SGPT) 26, Alkaline Phosphatase 71, Total Bilirubin 3.5#H, Total Protein 6.5, Albumin 2.7L, Albumin/Globulin Ratio 0.71L CBC/BMP Laboratory Tests 08/03/18 06:40 Red Blood Count 3.82 L, Mean Corpuscular Volume 89.0, Mean Corpuscular Hemoglobin 30.1, Mean Corpuscular Hemoglobin Concent 33.8, Red Cell Distribution Width 12.4, Calcium Level 8.7, Aspartate Amino Transf (AST/SGOT) 22, Alanine Aminotransferase (ALT/SGPT) 26, Alkaline Phosphatase 71, Total Bilirubin 3.5 #H, Total Protein 6.5, Albumin 2.7 L Microbiology Microbiology 07/31/18 Urine Culture - Final, Complete GME ATTESTATION GME ATTESTATION My faculty preceptor for this patient encounter was physically present during the encounter and was fully available. All aspects of the patient interview, examination, medical decision making process, and medical care plan development were reviewed and approved by the faculty preceptor. The faculty preceptor is aware and concurs with the plan as stated in the body of this note and will attest to such by his/her cosignature. ATTENDING NOTE I saw and evaluated the patient. I agree with the findings and plan of care as documented in the resident's note VINCENT DONATO DO August 03, 2018 14:34 ABIOLA ABEL MD August 05, 2018 16:38
[2018-08-03 20:32] VITALS: BP 152/88
[2018-08-03] MEDS ORDERED: ACETAMINOPHEN TAB 650MG DOSE (2X325MG) PO ONE (20:45)
[2018-08-03] MEDS: risperiDONE 1 MG TAB PO SCH (20:46)
[2018-08-04] MEDS: PERCOCET 5MG/325MG TAB PO PRN ×4 (02:46→20:15)
[2018-08-04] MEDS: HEPARIN SOD (PORCINE) 5000 UNITS/ML VIAL SQ SCH ×3 (05:03→21:09)
[2018-08-04 06:23] VITALS: BP 138/90
[2018-08-04 07:13] LABS: HEMATOCRIT 34.5 % (42.0-52.0); HEMOGLOBIN 11.5 g/dl (13.5-17.5); MEAN CORPUSCULAR HEMOGLOBIN 30.2 pg (27.0-33.0); MEAN CORPUSCULAR HGB CONC 33.3 g/dl (32.0-36.5); MEAN CORPUSCULAR VOLUME 90.6 fl (80.0-96.0); PLATELET COUNT, AUTOMATED 315 10^3/uL (150-450); RED BLOOD COUNT 3.81 10^6/uL (4.30-6.10)
[2018-08-04 07:41] LABS: ALBUMIN 2.5 GM/DL (3.2-5.2); ALT/SGPT 38 U/L (12-78); BILIRUBIN,TOTAL 1.6 MG/DL (0.2-1.0); BLOOD UREA NITROGEN 6 MG/DL (7-18); CALCIUM LEVEL 8.5 MG/DL (8.5-10.1); CARBON DIOXIDE LEVEL 30 MEQ/L (21-32); CHLORIDE LEVEL 104 MEQ/L (98-107); CREATININE FOR GFR 0.74 MG/DL (0.70-1.30); GLUCOSE, FASTING 92 MG/DL (70-100); POTASSIUM SERUM 3.1 MEQ/L (3.5-5.1); SODIUM LEVEL 139 MEQ/L (136-145); TOTAL PROTEIN 6.3 GM/DL (6.4-8.2)
[2018-08-04] MEDS ORDERED: POTASSIUM CHLORIDE 10 MEQ SR TABLET PO ONE ×2 (08:00→13:00)
[2018-08-04 08:12] LABS: MAGNESIUM LEVEL 2.4 MG/DL (1.8-2.4)
[2018-08-04] MEDS: busPIRone 10 MG TAB PO SCH ×3 (09:13→20:15)
[2018-08-04] MEDS: NICOTINE 21MG/24HR 1 EA TRANSDERMAL TD SCH (09:13)
[2018-08-04 09:21] LABS: LIPASE 59 U/L (73-393)
--- NOTE | 2018-08-04 10:32 | REP ---
CT ABDOMEN AND PELVIS WITHOUT CONTRAST: CT abdomen and pelvis performed without oral or IV contrast. Sagittal and coronal reconstruction images performed. Comparison 07/31/2018. There are patchy parenchymal opacities in the visualized lung bases compatible with areas of atelectasis/infiltrate. There is a small left effusion. Liver, spleen, adrenals, and kidneys are grossly unchanged. There are again findings of pancreatitis which appear improved with apparent improvement of peripancreatic inflammatory changes and fluid. No gross abscess is seen, but evaluation is limited without oral or IV contrast. No definite bowel abnormality is seen. There is no evidence of appendicitis. There is mild free fluid in the pelvis similar to the prior study. IMPRESSION: Pancreatitis. Findings appear somewhat improved since prior study of 07/31/2018, although evaluation is limited without oral or IV contrast. Still mild free fluid in the pelvis, relatively stable. Patchy bibasilar atelectasis/infiltrate with small left effusion. Electronically Signed by Madi Shepherd MD 08/04/2018 03:15 P
[2018-08-04] MEDS: SENNA 8.6 MG TAB (SENOKOT) PO SCH (10:43)
--- NOTE | 2018-08-04 11:17 | IPNPDOC ---
Date Seen The patient was seen on 08/04/18. Progress Note SUBJECTIVE: Patient was seen and examined this morning. He currently indicates more pain then previously. He states that after eating the food he develops worsening abdominal pain and states that it is at the same pain level as when he came in. Additionally, the patient complains of some numbness on the dorsum of his left foot. He does admit to some nausea with eating however denies any vomiting. The patient also states that he has not had a bowel movement although nursing had documented a bowel movement on 08/03/18. OBJECTIVE PHYSICAL EXAMINATION: VITAL SIGNS: Please see below. GENERAL: Awake, alert, and oriented. He appears in no acute distress. He does appear uncomfortable. He is lying in bed moaning with his hand over his stomach. HEENT: Atrumatic, normocephalic. Eyes are nonicteric. Trachea is midline. Mucous membranes are pink and moist CARDIOVASCULAR: Normal S1, S2. Tachycardic. Regular rhythm. No clicks, rubs, or murmurs noted. RESPIRATORY: Mild fine crackles in the bases bilaterally. Good respiratory effort. No wheezes, rhonci, or rales ABDOMINAL: Morbidly obese, soft, nondistended. Nontender to palpation although patient complains of generalized pain. No rebound tenderness or guarding. Multiple bruises in location of heparin shots. No hernia or masses. Slightly h ypoactive bowel sounds EXTREMITIES: No edema. Left and right foot range of motion testing normal in dorsiflexion, extension and plantar flexion, extension. Sensation intact. No joint swelling or effusion in left or right foot. No bruising of foot or ankle bilaterally. NEUROLOGICAL: No focal neurological deficits noted PSYCHOLOGICAL: Flat affect. Mood appropriate LABORATORY DATA, IMAGING STUDIES, MICROBIOLOGY: Please see below. DVT prophylaxis ordered?: YES ASSESSMENT AND PLAN: Patient is a 18 year old male with a past medical history significant for hypertension, depression, anxiety, and tobacco abuse who presented to the [facility] ER with diffuse abdominal pain and nausea for 24 hours. The patient denies any inciting factors and states that the pain had come on suddenly. In the ER the patient was found to have diffuse pancreatitis by CT imaging as well as an elevated lipase. PROBLEMS: 1. Acute Pancreatitis -Patients diet was advanced yesterday. He does admit to more pain today after eating. He states that his pain is back the same amount on admission. He denies any vomiting but states that he does have nausea. -Will place patient on a clear liquids diet -Due to patients continued pain and unknown etiology of his pancreatitis will get CT scan -CT scan results demonstrated pancreatitis with improved findings from his prior study as well as some mild free fluid in the pelvis. Additional patchy bibasilar atelectasis/infiltrate with small left effusion 2. Constipation -Patient has stated that he has not had a bowel movement. Nursing hasa documented a bowel movement on 08/03/18. He has received opioids for pain relief which could contribute to his constipation -Senokot and Miralax 2. Depression/Anxiety -Continue Buspar 10mg TID -Continue Risperidone 1mg QHS -Atarax 25mg QID PRN -Trazodone 100 mg QHS 3. Tobacco Abuse -Nicotine patch 21 mg 4. Anemia -Patients hemoglobin appears to be trending down. He has gotten a plenty of IV fluid during his admission and this is likely dilutional. Will continue to monitor. -Hgb stable will continue to trend -Bilirubin is elevated but coming down. 5. DVT Prophylaxis -Heparin SQ A-FIB/CHADSVASC A-FIB History Current/History of A-Fib/PAF?: No VS, I&O, 24H, Fishbone Vital Signs/I&O Vital Signs Date Time Temp Pulse Resp B/P (MAP) Pulse Ox O2 Delivery O2 Flow Rate FiO2 08/04/18 10:06 18 08/04/18 06:23 99.1 78 138/90 (106) 95 08/03/18 22:30 2.0 07/31/18 06:37 Room Air I&O- Last 24 Hours up to 6 AM 08/04/18 06:00 Intake Total 1270 ml Balance 1270 ml Laboratory Data 24H LABS Laboratory Tests 2 08/04/18 06:43: Nucleated Red Blood Cells % (auto) 0.0, Anion Gap 5L, Blood Urea Nitrogen 6L, Creatinine 0.74, Sodium Level 139, Potassium Level 3.1L, Chloride Level 104, Carbon Dioxide Level 30, Calcium Level 8.5, Aspartate Amino Transf (AST/SGOT) 19, Alanine Aminotransferase (ALT/SGPT) 38, Alkaline Phosphatase 81, Total Bilirubin 1.6#H, Total Protein 6.3L, Albumin 2.5L, Magnesium Level 2.4, Albumin/Globulin Ratio 0.66L, Lipase 59L CBC/BMP Laboratory Tests 08/04/18 06:43 Red Blood Count 3.81 L, Mean Corpuscular Volume 90.6, Mean Corpuscular Hemoglobi n 30.2, Mean Corpuscular Hemoglobin Concent 33.3, Red Cell Distribution Width 12.4, Calcium Level 8.5, Aspartate Amino Transf (AST/SGOT) 19, Alanine Aminotransferase (ALT/SGPT) 38, Alkaline Phosphatase 81, Total Bilirubin 1.6 #H, Total Protein 6.3 L, Albumin 2.5 L Microbiology Microbiology 07/31/18 Urine Culture - Final, Complete GME ATTESTATION GME ATTESTATION My faculty preceptor for this patient encounter was physically present during the encounter and was fully available. All aspects of the patient interview, exa mination, medical decision making process, and medical care plan development were reviewed and approved by the faculty preceptor. The faculty preceptor is aware and concurs with the plan as stated in the body of this note and will attest to such by his/her cosignature. ATTENDING NOTE I saw and evaluated the patient. I agree with the findings and plan of care as documented in the resident's note VINCENT DONATO DO August 04, 2018 11:17 ABIOLA ABEL MD August 05, 2018 16:40
[2018-08-04 14:06] VITALS: BP 155/90
[2018-08-04 20:00] VITALS: BP 160/86
[2018-08-04] MEDS: risperiDONE 1 MG TAB PO SCH (20:15)
[2018-08-05] MEDS: PERCOCET 5MG/325MG TAB PO PRN (01:40)
[2018-08-05 04:00] VITALS: BP 160/89
[2018-08-05] MEDS: HEPARIN SOD (PORCINE) 5000 UNITS/ML VIAL SQ SCH (05:20)
[2018-08-05 06:39] LABS: HEMATOCRIT 33.8 % (42.0-52.0); HEMOGLOBIN 11.1 g/dl (13.5-17.5); MEAN CORPUSCULAR HEMOGLOBIN 29.8 pg (27.0-33.0); MEAN CORPUSCULAR HGB CONC 32.8 g/dl (32.0-36.5); MEAN CORPUSCULAR VOLUME 90.9 fl (80.0-96.0); PLATELET COUNT, AUTOMATED 350 10^3/uL (150-450); RED BLOOD COUNT 3.72 10^6/uL (4.30-6.10); WHITE BLOOD COUNT 17.4 10^3/uL (4.0-10.0)
[2018-08-05 07:09] LABS: ALBUMIN 2.4 GM/DL (3.2-5.2); ALT/SGPT 44 U/L (12-78); BILIRUBIN,TOTAL 1.1 MG/DL (0.2-1.0); BLOOD UREA NITROGEN 6 MG/DL (7-18); CALCIUM LEVEL 8.4 MG/DL (8.5-10.1); CARBON DIOXIDE LEVEL 29 MEQ/L (21-32); CHLORIDE LEVEL 104 MEQ/L (98-107); CREATININE FOR GFR 0.68 MG/DL (0.70-1.30); GLUCOSE, FASTING 85 MG/DL (70-100); POTASSIUM SERUM 3.6 MEQ/L (3.5-5.1); SODIUM LEVEL 142 MEQ/L (136-145)
[2018-08-05] MEDS: busPIRone 10 MG TAB PO SCH (08:57)
[2018-08-05] MEDS: NICOTINE 21MG/24HR 1 EA TRANSDERMAL TD SCH (08:57)
[2018-08-05] MEDS: SENNA 8.6 MG TAB (SENOKOT) PO SCH (08:57)
[2018-08-05] MEDS ORDERED: MIRALAX *UNIT DOSE* 17GM PACKET PO SCH (09:00)
[2018-08-05] MEDS ORDERED: NICO21PAT TD (11:19)
[2018-08-05] MEDS ORDERED: OXYC1TAB23 PO (11:19)
[2018-08-05] MEDS ORDERED: SENN18TA PO (11:19)
--- NOTE | 2018-08-06 09:29 | DSES ---
DATE OF ADMISSION: 07/31/2018 DATE OF DISCHARGE: 08/05/2018 DISCHARGE DIAGNOSIS: Pancreatitis. SECONDARY DIAGNOSES: 1. Constipation. 2. Depression. 3. Anxiety. 4. Tobacco abuse. HOSPITAL COURSE: The patient is a 18-year-old male who presented on 07/31/2018 with diffuse abdominal pain, nausea and vomiting, inability to tolerate oral. He did have a fairly extensive workup, which did not reveal any gallstones. He is an active smoker. He is morbidly obese, but otherwise no other identifiable risk factors for his pancreatitis were noted. He did not have significantly elevated triglycerides. He denies any alcohol or illicit drug use. He did progress rather slowly and did have diffuse inflammation of his pancreas. He did have repeat CT imaging of his pancreas that did show improving and resolution. SUBJECTIVE: This morning the patient tells me he is feeling better, however. He is tolerating a diet. He did get up and shower. His pain is resolving. OBJECTIVE: VITAL SIGNS: Temperature 97.9, pulse 99, respiratory rate 18, blood pressure 150/89, oxygen saturation 94% on room air. GENERAL: He is a young, morbidly obese, man, sitting in a chair, awake, alert and oriented. He speaks in complete sentences. He appears fatigued, but has though throughout the entire course of his hospitalization. HEENT: Cranial nerves II-XII are grossly intact. He has moist mucous membranes. No elevation of central venous pressure (CVP). CARDIOVASCULAR EXAM: S1 and S2, regular. He is not tachycardic. RESPIRATORY EXAM: Clear, distant secondary to body habitus. ABDOMINAL EXAM: Grossly obese. It is soft and nontender event to deep palpation. EXTREMITIES: No clubbing, cyanosis, or edema. LABORATORY STUDIES: WBC 17.4, hemoglobin 11.1, platelet count 350. Chemistry panel: Sodium 142, potassium 3.6, chloride 104, bicarbonate 29, BUN 6, creatinine 0.6, total bilirubin 1.1. Urinalysis (UA) was unremarkable. Microbiology unremarkable. His initial presenting CT scan did reveal extensive diffuse pancreatitis. ASSESSMENT AND PLAN: This is a 18-year-old man with acute pancreatitis. PROBLEMS: 1. Acute pancreatitis possibly secondary to tobacco abuse. No other clear etiology. He is morbidly obese. Did not have any gallstones, alcohol abuse or illicit drug use. Should he have a recurrence in the future would recommend MRI of the abdomen to evaluate his pancreatic anatomy. None of his medications appear to be very suspicious for any soliciting cause. At this time, he is tolerating a diet. He was briefly nothing by mouth and on intravenous (IV) he did receive significant IV fluid resuscitation. 2. Pain control, which we have now weaned. He is doing quite well. He is afebrile. 3. Constipation. He did have reduce use of significant narcotics and did have a bowel movement after a bowel regimen. 4. Depression/anxiety. He is continued on BuSpar 10 mg three times a day, risperidone 1 mg nightly, Atarax 25 mg four times a day, and trazodone 100 mg nightly. Given his rather fatigued affect, I suspect he may benefit from weaning down of some of his polypharmacy. Will defer to his outpatient psychiatrist. 5. Tobacco abuse. Cessation counseling provided. Nicotine patch provided. 6. Deep venous thrombosis (DVT) prophylaxis. He has been on heparin. DISPOSITION: He is independent of his activities of daily living (ADL). He is at his functional baseline. He is being discharged to the care of his family. He is to followup with his primary care physician in 7 days. His activity is prior to admission. His diet is bland. He is to return to the emergency room (ER) if symptoms worsen. Medications at the time of discharge: - nicotine patch 21 mg transdermally daily - Percocet 1 tablet three times a day as needed for pain, not to exceed 3 tablets,9 tablets - Senna Lax 8.6 mg 2 tablets daily - buspirone 10 mg three times a day - vitamin D2 50,000 units once a week on Fridays - hydroxyzine 25 mg four times daily as needed for anxiety - lisinopril 10 mg daily - risperidone 1 mg nightly - trazodone 100 mg nightly Greater than 45 minutes spent on disposition.
== END 2018-08-05 12:37 | disposition home or self-care (01) | DRG 439 ==
LOC: M ED 02:26 → M ED INP 05:59 → M MS4PR 09:05
PROVIDERS: ADMIT Internal Medicine; ATTEND Internal Medicine
DX: K85.90 Acute pancreatitis without necrosis or infection, unspecified (principal); Z68.41 Body mass index [BMI] 40.0-44.9, adult; E66.01 Morbid (severe) obesity due to excess calories; K59.00 Constipation, unspecified; F32.9 Major depressive disorder, single episode, unspecified; F41.9 Anxiety disorder, unspecified; F17.200 Nicotine dependence, unspecified, uncomplicated; Z79.899 Other long term (current) drug therapy; I10 Essential (primary) hypertension; D72.829 Elevated white blood cell count, unspecified; D64.9 Anemia, unspecified

== ENCOUNTER 2018-12-12 18:26 | Emergency (ER) | payer OTHER, MEDICARE, MEDICAID ==
[~2018-12-12] VITALS: Ht 188 cm; Wt 140.4 kg
[~2018-12-12 18:26] MED LIST changes: +BUSP10TA PO; +NICO21PAT TD; +OXYC1TAB23 PO; +RISP1TAB3 PO; +SENN18TA PO
[2018-12-12] MEDS ORDERED: ADACEL/BOOSTRIX VACCINE (DIPHTH/PERTUSS/ACELL/TETANUS)0.5ML SYR (90715) IM ONE (20:00)
[2018-12-12 20:24] VITALS: BP 164/70
--- NOTE | 2018-12-13 07:39 | REP ---
REASON: Pain after trauma. FINDINGS: The hip joint space is symmetric and relatively well maintained. There is no acute or destructive osseous lesion. Electronically Signed by Domingo Nevarez DO 12/13/2018 03:18 P
--- NOTE | 2018-12-13 07:40 | REP ---
FINDINGS: No acute fracture or destructive osseous lesion. Only two views were obtained. Two views cannot rule out a fracture. Electronically Signed by Domingo Nevarez DO 12/13/2018 03:18 P
--- NOTE | 2018-12-13 07:40 | REP ---
REASON: Pain. Three limited views show no fracture. Electronically Signed by Domingo Nevarez DO 12/13/2018 03:19 P
== END 2018-12-12 20:33 | disposition home or self-care (01) ==
LOC: EDBD 18:26 → M ED 18:26
DX: S60.511A Abrasion of right hand, initial encounter (principal); V13.4XXA Pedal cycle driver injured in collision with car, pick-up truck or van in traffic accident, initial encounter; M23.92 Unspecified internal derangement of left knee

== ENCOUNTER 2019-10-10 15:27 | Emergency (ER) | payer MEDICARE, MEDICAID ==
[~2019-10-10] VITALS: Ht 188 cm; Wt 136.4 kg
[~2019-10-10 15:27] MED LIST changes: -DOXY100T16 PO; +DOXY100T27 PO; -LORA0.5T11 PO; +LORA0.5T5 PO; -TRAZ10TA PO; +TRAZ1TAB12 PO
[2019-10-10] MEDS ORDERED: NS 1,000 ML IV ONE (16:15)
[2019-10-10 16:30] LABS: HEMATOCRIT 43.7 % (42.0-52.0); HEMOGLOBIN 15.5 g/dl (13.5-17.5); MEAN CORPUSCULAR HEMOGLOBIN 31.6 pg (27.0-33.0); MEAN CORPUSCULAR HGB CONC 35.5 g/dl (32.0-36.5); MEAN CORPUSCULAR VOLUME 89.2 fl (80.0-96.0); PLATELET COUNT, AUTOMATED 339 10^3/uL (150-450); WHITE BLOOD COUNT 13.7 10^3/uL (4.0-10.0)
[2019-10-10 16:53] LABS: AMPHETAMINES LEVEL URINE NEGATIVE (NEGATIVE); BARBITURATES URINE NEGATIVE (NEGATIVE); BENZODIAZEPINES URINE NEGATIVE (NEGATIVE); CANNABINOIDS URINE NEGATIVE (NEGATIVE); COCAINE METABOLITE URINE NEGATIVE (NEGATIVE); METHADONE URINE NEGATIVE (NEGATIVE); OPIATES URINE NEGATIVE (NEGATIVE); PHENCYCLIDINE URINE NEGATIVE (NEGATIVE)
[2019-10-10 16:56] LABS: ALBUMIN 3.7 GM/DL (3.2-5.2); ALT/SGPT 24 U/L (12-78); BILIRUBIN,TOTAL 0.5 MG/DL (0.2-1.0); BLOOD UREA NITROGEN 8 MG/DL (7-18); CALCIUM LEVEL 9.3 MG/DL (8.5-10.1); CARBON DIOXIDE LEVEL 27 MEQ/L (21-32); CHLORIDE LEVEL 108 MEQ/L (98-107); CPK CREATINE PHOSPHOKINASE 162 U/L (39-308); CREATININE FOR GFR 0.88 MG/DL (0.70-1.30); ETHYL ALCOHOL (ETHANOL) < 0.003 % (0.000-0.010); GLOMERULAR FILTRATION RATE > 60.0 (>60); GLUCOSE, FASTING 77 MG/DL (70-100); POTASSIUM SERUM 4.2 MEQ/L (3.5-5.1); SODIUM LEVEL 141 MEQ/L (136-145); TOTAL PROTEIN 6.8 GM/DL (6.4-8.2)
[2019-10-10 17:30] VITALS: BP 132/60
== END 2019-10-10 17:37 | disposition home or self-care (01) ==
LOC: M ED 15:27
DX: T67.3XXA Heat exhaustion, anhydrotic, initial encounter (principal); R42 Dizziness and giddiness; F10.99 Alcohol use, unspecified with unspecified alcohol-induced disorder; F41.9 Anxiety disorder, unspecified; F32.9 Major depressive disorder, single episode, unspecified; Z79.899 Other long term (current) drug therapy
CPT/HCPCS: 80047; 80053; 80307; 81001; 82550; 85027; 96360; 99284; G0480

== ENCOUNTER → 2019-11-13 | Emergency (ER) | payer MEDICARE, MEDICAID, OTHER ==
[~2019-11-13] MED LIST changes: +RISP1TAB3
== END | disposition home or self-care (01) ==
LOC: M ED 16:40
DX: M25.561 Pain in right knee (principal); M25.562 Pain in left knee; M61.562 Other ossification of muscle, left lower leg; F41.9 Anxiety disorder, unspecified; F33.9 Major depressive disorder, recurrent, unspecified; F17.210 Nicotine dependence, cigarettes, uncomplicated; Z79.899 Other long term (current) drug therapy

== ENCOUNTER 2020-02-14 01:45 | Inpatient (IN) | payer MEDICARE, MEDICAID ==
[~2020-02-14] VITALS: Ht 188 cm; Wt 125.6 kg
[~2020-02-14 01:45] MED LIST changes: -RISP1TAB3
[2020-02-14 02:13] LABS: HEMATOCRIT 45.9 % (42.0-52.0); HEMOGLOBIN 15.1 g/dl (13.5-17.5); MEAN CORPUSCULAR HEMOGLOBIN 29.8 pg (27.0-33.0); MEAN CORPUSCULAR HGB CONC 32.9 g/dl (32.0-36.5); MEAN CORPUSCULAR VOLUME 90.7 fl (80.0-96.0); PLATELET COUNT, AUTOMATED 320 10^3/uL (150-450); RED BLOOD COUNT 5.06 10^6/uL (4.30-6.10); WHITE BLOOD COUNT 13.1 10^3/uL (4.0-10.0)
[2020-02-14 03:04] LABS: ACETAMINOPHEN LEVEL < 2.0 UG/ML (10.0-30.0); ALBUMIN 3.7 GM/DL (3.2-5.2); ALT/SGPT 21 U/L (12-78); BILIRUBIN,DIRECT < 0.1 MG/DL (0.0-0.2); BILIRUBIN,TOTAL 0.3 MG/DL (0.2-1.0); BLOOD UREA NITROGEN 9 MG/DL (7-18); CALCIUM LEVEL 9.1 MG/DL (8.5-10.1); CARBON DIOXIDE LEVEL 26 MEQ/L (21-32); CHLORIDE LEVEL 109 MEQ/L (98-107); CREATININE FOR GFR 0.92 MG/DL (0.70-1.30); ETHYL ALCOHOL (ETHANOL) 0.003 % (0.000-0.010); GLOMERULAR FILTRATION RATE > 60.0 (>60); GLUCOSE, FASTING 109 MG/DL (70-100); POTASSIUM SERUM 4.1 MEQ/L (3.5-5.1); SALICYLATE LEVEL 2.6 MG/DL (5.0-30.0); SODIUM LEVEL 143 MEQ/L (136-145); TOTAL PROTEIN 6.7 GM/DL (6.4-8.2)
[2020-02-14 03:05] LABS: AMPHETAMINES LEVEL URINE NEGATIVE (NEGATIVE); BARBITURATES URINE NEGATIVE (NEGATIVE); BENZODIAZEPINES URINE NEGATIVE (NEGATIVE); CANNABINOIDS URINE NEGATIVE (NEGATIVE); COCAINE METABOLITE URINE NEGATIVE (NEGATIVE); METHADONE URINE NEGATIVE (NEGATIVE); OPIATES URINE NEGATIVE (NEGATIVE); PHENCYCLIDINE URINE NEGATIVE (NEGATIVE)
[2020-02-14] MEDS ORDERED: RISP1TAB3 (03:50)
[2020-02-14] MEDS ORDERED: MAALOX 30 ML SUSP *UDC PO PRN (04:45)
[2020-02-14] MEDS ORDERED: traZODone 50 MG TAB PO PRN (04:45)
[2020-02-14] MEDS ORDERED: ACETAMINOPHEN TAB 650MG DOSE (2X325MG) PO PRN (04:45)
[2020-02-14] MEDS ORDERED: MOM 30ML SUSPENSION UDC PO PRN (04:45)
[2020-02-14] MEDS ORDERED: RISP1TAB3 PO (05:00)
[2020-02-14 08:10] VITALS: BP 140/90
[2020-02-14] MEDS: busPIRone 5 MG TAB PO SCH ×2 (11:56→20:59)
[2020-02-14] MEDS: VITAMIN D 1,000 INTERNATIONAL UNITS TABLET PO SCH (11:56)
[2020-02-14] MEDS: OLANZapine 5 MG TAB PO SCH ×2 (11:56→20:59)
--- NOTE | 2020-02-14 14:35 | MHHPEPDOC ---
General Date Of Admission: Feb 14, 2020 Legal Status: 9.39 Chief Complaint "Basically I have bad anger and when I am angry I like to be by myself. My friends were saying rude comments and got me so angry that I was mad." History of Present Illness HISTORY OF THE PRESENT ILLNESS: According to the ED report: Patient is a 20 -year-old Single, Disabiled, Domiciled, , male, who was brought to [facility] after he made a suicidal statement to his friend. Patient recently lost his father a month ago, reports that he has been feeling very depressed and acted out when his friend made a rude comment, stated that he wanted to hit this person but instead he began to break things and said "I really want to kill myself." He stated that he was angry and not actually suicidal. "I like to be myself when I am angry, and if I am not by myself I will start wailing because some people don't respect my boundaries." Psychiatric Review of Systems Depression (2 or more weeks): depressed mood, feelings of excess/guilt, feelings of worthlesness (helplessness, hopelessness), decreased energy, suicidal thoughts Jane (4 or more days of): denies Psychosis: denies Anxiety: situational anxiety, stressor related anxiety Anxiety/ 6 months or more of: restlessness, keyed up Past Psychiatric History Previous Psychiatric Diagnosis: Depression, Anxiety Previous Psychiatric Admissions: "This is probably my 6th or 7th" Suicide Attempts: History of cutting, last time cut self 3 weeks ago. History of Overdose in 2018 Psychiatric Follow-up: Has an appointment with Dr. Leone, [facility] Psychiatric medications: Suppose to be on Risperdal and Buspar I haveb't taken it in over a year. Past Medical History Medical Problems Hypertension Obesity Surgery - Testicular Surgery Head Injury: No Seizures: No Hospitalizations: Yes Surgeries: Yes Family Medical/Psychiatric HX Medical Problems Mother- Diabetes, Depression, Anxiety, Psychiatric Disorders: Yes (Gradbmother with Bipolar, Diabetes, Depression) Addiction: Yes (cousins ) Suicide Attemps/Completions: Yes (Mother's brother) Addiction History nicotine (half a pack a day), alcohol (occasional ) Social History Childhood: Born in [place], grew up with just mother and older Sister. Abuse/Trauma: None, Current Living Situation: Lives in an apartment with a friend Education: High School Graduate, IEP Employment: Disability, SSI Social Support: Family and friends Legal: None Marital: Single, Never , and no Children Mental Status Examination General Appearance: disheveled, appears stated age, hospital scubs/clothing Build: overweight Demeanor: average, other (learning disability, has flat affect) Eye Contact: other (downcast) Activity: slowed Behavior: cooperative, withdrawn Speech: clear, normal volume, reg/rate,rhythm,volume Mood: depressed, anxious Affect: flat Thought Process: logical/linear Thought Content (Delusions): denies SI, HI, AVH Thought Content (Other): guilty Perception (Hallucinations): none reported Perception (Other): none reported Cognition (Impairment of): none reported Cognition(Intelligence Est.): borderline Oriented: Awake, Alert, Oriented times three Insight: fair Judgment: Fair Psychosis: Denies Diagnoses Major Depressive Disorder, Recurrent, Mild Unspecified Anxiety Disorder Intellectual Disability Adjustment Disorder with Mixed Disturbances of Emotions and Conduct Tobacco Use Disorder Hypertension Obesity A-FIB/CHADSVASC A-FIB History Current/History of A-Fib/PAF?: No Assessment Patient to start Risperdal and Buspar which he states he has not taken in over a year. He currently is denying suicidal ideation, reports mild depression and grief due to loss of his father We will observe patient on the above medications and adjust accordingly Initial Treatment Plan 1. Patient was admitted on a [9.39] status. 2. Complete history was obtained. 3. With patients permission, family will be contacted and database will be expanded. 4. Patients medication regimen will be reviewed and changed accordingly. 5. Patient will be provided with protected environment. 6. Patient will be treated with individual, group, and milieu therapies. 7. Patient will receive supportive psych-education. 8. Discharge planning will commence immediately. 9. Outpatient follow-up treatment will be strongly recommended. 10. The initial treatment plan will focus initially on: * Depression. * Risk for suicide. ESTIMATED LENGTH OF STAY: 3-5 DAYS. TIME SPENT COUNSELING AND COORDINATING INITIAL CARE: 52 minutes. Vital Signs Vital Signs Date Time Temp Pulse Resp B/P (MAP) Pulse Ox O2 Delivery O2 Flow Rate FiO2 02/14/20 08:10 97.7 98 18 140/90 (107) 98 Room Air Laboratory Data 24H Labs Laboratory Tests 2 02/14/20 01:59: Nucleated Red Blood Cells % (auto) 0.0, Anion Gap 8, Glomerular Filtration Rate > 60.0, Calcium Level 9.1, Total Bilirubin 0.3, Direct Bilirubin < 0.1, Aspartate Amino Transf (AST/SGOT) 11, Alanine Aminotransferase (ALT/SGPT) 21, Alkaline Phosphatase 95, Total Protein 6.7, Albumin 3.7, Albumin/Globulin Ratio 1.2, Thyroid Stimulating Hormone (TSH) 1.840, Salicylates Level 2.6L, Urine Opia isela Screen NEGATIVE, Urine Methadone Screen NEGATIVE, Acetaminophen Level < 2.0L, Urine Barbiturates Screen NEGATIVE, Urine Phencyclidine Screen NEGATIVE, Urine Amphetamines Screen NEGATIVE, Urine Benzodiazepines Screen NEGATIVE, Urine Cocaine Metabolite Screen NEGATIVE, Urine Cannabinoids Screen NEGATIVE, Ethyl Alcohol Level 0.003 02/14/20 05:31: Coronavirus (COVID-19)(PCR) NEGATIVE CBC/BMP Laboratory Tests 02/14/20 01:59 Medications Scheduled Buspirone HCl (Buspirone HCl) 10 Mg Tablet, 10 MG PO TID, (Reported) Lisinopril (Lisinopril) 10 Mg Tab, 10 MG PO DAILY, (Reported) Risperidone (Risperidone) 1 Mg Tablet, 1 MG PO DAILY, (Reported) Allergies Coded Allergies: No Known Allergies (Unverified , 07/31/18) ROME GREENFIELD NP Feb 14, 2020 11:30
[2020-02-14 16:14] VITALS: BP 140/67
--- NOTE | 2020-02-14 20:55 | HPEPDOC ---
[facility] Medical History & Physical Date of Admission Feb 14, 2020 Date of Service: Feb 14, 2020 History and Physical CHIEF COMPLAINT: Suicide ideation HISTORY OF PRESENT ILLNESS: Mr. Mcmillan is a 20-year-old male with obesity, hypertension, depression, and anxiety who is here in the inpatient mental health unit for suicidal ideation. He recently lost his father and made a suicidal comment to his friend. Otherwise, when I saw him in the inpatient at health unit, he did not have any complaints. Denies any fever or chills, lightheadedness or dizziness, chest pain, dyspnea, abdominal pain, diarrhea, or dysuria. PAST MEDICAL HISTORY: 1. Obesity 2. Hypertension. 3. Anxiety/depression. PAST SURGICAL HISTORY: 1. Right testicular torsion surgery. SOCIAL HISTORY: Tobacco use: Current smoker, smoked for 1 year, half a pack per day ETOH: Rare Illicit drug use: Denies FAMILY HISTORY: Father: Per patient, unknown Mother: Per patient, unknown ALLERGIES: Please see below. REVIEW OF SYSTEMS: CONSTITUTIONAL: Denies any fever or chills. Denies lightheadedness or dizziness. ENT: Denies sore throat. Denies dysphagia. RESPIRATORY: Denies shortness of breath. Denies cough. CARDIOVASCULAR: Denies chest pain. Denies palpitations. GASTROINTESTINAL: Denies abdominal pain. Denies diarrhea. Denies constipation GENITOURINARY: Denies dysuria. CUTANEOUS: Denies rashes. ENDOCRINE: Denies polyphagia, denies polydipsia, denies polyuria NEUROLOGICAL: Denies neuropathy. Denies paresthesias. Hematology/oncology: Denies easy bruisability HOME MEDICATIONS: Please see below. PHYSICAL EXAMINATION: VITAL SIGNS: Temperature 98.1, pulse 84, respiratory rate 18, blood pressure 140/67, pulse oximetry 98 % on room air. GENERAL: Comfortable, in no apparent distress. HEENT: Head normocephalic/atraumatic, EOMI, sclera clear. NECK: Supple, no JVD. RESPIRATORY: Lungs clear to auscultation bilaterally, no rales, wheeze or rhonchi. CARDIOVASCULAR: Regular rate and rhythm. ABDOMEN: Soft, nontender, no guarding or rebound tenderness. Normal bowel sounds. MUSCLE SKELETAL: Muscle strength 5/5 in all extremities. NEUROLOGICAL: CN 312 grossly intact, no focal deficits noted. PSYCHOLOGICAL: Normal mood and affect LABORATORY DATA: See below. ASSESSMENT and PLAN: 1. Suicide ideation Being managed in the inpatient [facility] health unit 2. Hypertension Patient is on 10 mg of lisinopril, but has been noncompliant at home We will start 5 mg of lisinopril here as his blood pressure is borderline high 3. Obesity He should follow with his PCP to discuss weight loss strategies Thank you for consulting us, we will sign off at this time, please do not hesitate to reconsult us for any further questions or concerns Vital Signs Vital Signs Date Time Temp Pulse Resp B/P (MAP) Pulse Ox O2 Delivery O2 Flow Rate FiO2 02/14/20 16:14 98.1 84 18 140/67 (91) 02/14/20 15:04 Room Air 02/14/20 08:10 98 Laboratory Data Labs 24H Laboratory Tests 2 02/14/20 01:59: Nucleated Red Blood Cells % (auto) 0.0, Anion Gap 8, Glomerular Filtration Rate > 60.0, Calcium Level 9.1, Total Bilirubin 0.3, Direct Bilirubin < 0.1, Aspartate Amino Transf (AST/SGOT) 11, Alanine Aminotransferase (ALT/SGPT) 21, Alkaline Phosphatase 95, Total Protein 6.7, Albumin 3.7, Albumin/Globulin Ratio 1.2, Thyroid Stimulating Hormone (TSH) 1.840, Salicylates Level 2.6L, Urine Opiates Screen NEGATIVE, Urine Methadone Screen NEGATIVE, Acetaminophen Level < 2.0L, Urine Barbiturates Screen NEGATIVE, Urine Phencyclidine Screen NEGATIVE, Urine Amphetamines Screen NEGATIVE, Urine Benzodiazepines Screen NEGATIVE, Urine Cocaine Metabolite Screen NEGATIVE, Urine Cannabinoids Screen NEGATIVE, Ethyl Alcohol Level 0.003 02/14/20 05:31: Coronavirus (COVID-19)(PCR) NEGATIVE CBC/BMP Laboratory Tests 02/14/20 01:59 Home Medications Scheduled Buspirone HCl (Buspirone HCl) 10 Mg Tablet, 10 MG PO TID Lisinopril (Lisinopril) 10 Mg Tab, 10 MG PO DAILY Risperidone (Risperidone) 1 Mg Tablet, 1 MG PO DAILY Allergies Coded Allergies: No Known Allergies (Unverified , 07/31/18) A-FIB/CHADSVASC A-FIB History Current/History of A-Fib/PAF?: No JERICA TRIPP DO Feb 14, 2020 20:55
[2020-02-15 06:26] VITALS: BP 149/68
[2020-02-15] MEDS ORDERED: INFLUENZA QUADRIVALENT PF VACCINE 0.5ML SYRINGE IM ONE (09:00)
[2020-02-15] MEDS: lisinopriL 5 MG TAB PO SCH (09:01)
[2020-02-15] MEDS: PILL CUTTER 1 EACH XX PRN (09:01)
[2020-02-15] MEDS: VITAMIN D 1,000 INTERNATIONAL UNITS TABLET PO SCH (09:01)
[2020-02-15] MEDS: OLANZapine 5 MG TAB PO SCH ×2 (09:01→20:03)
[2020-02-15] MEDS: busPIRone 5 MG TAB PO SCH ×2 (09:01→20:03)
[2020-02-15 16:33] VITALS: BP 135/66
--- NOTE | 2020-02-15 18:15 | MHIPNPDOC ---
[facility] Progress Note Progress Note DATE OF SERVICE: 02/15/20 HISTORY: As per previous notes: "HISTORY OF THE PRESENT ILLNESS: According to the ED report: Patient is a 20 -year-old Single, Disabiled, Domiciled, Caucasia n, male, who was brought to [facility] after he made a suicidal statement to his friend. Patient recently lost his father a month ago, reports that he has been feeling very depressed and acted out when his friend made a rude comment, stated that he wanted to hit this person but instead he began to break things and said "I really want to kill myself." He stated that he was angry and not actually suicidal. "I like to be myself when I am angry, and if I am not by myself I will start wailing because some people don't respect my boundaries." VITAL SIGNS: See below. NEW TEST RESULTS: See below CURRENT MEDICATIONS: See below. MENTAL STATUS EXAMINATION: General Appearance: disheveled, appears stated age, hospital scrubs/clothing Build: overweight Demeanor: cooperative, calm Eye Contact: avoidant most of the time Activity: slow Behavior: cooperative, withdrawn Speech: clear, normal volume, reg/rate,rhythm,volume Mood: depressed Affect: flat Thought Process: logical/linear Thought Content (Delusions): denies SI, HI, AVH Thought Content (Other): denies thought delusions, denies guilty thoughts Perception (Hallucinations): none reported Perception (Other): none reported Cognition (Impairment of): none reported Cognition(Intelligence Est.): borderline Oriented: Awake, Alert, Oriented times three Insight: fair Judgment: Fair Psychosis: Denies Diagnoses Major Depressive Disorder, Recurrent, Mild Unspecified Anxiety Disorder Intellectual Disability Adjustment Disorder with Mixed Disturbances of Emotions and Conduct Tobacco Use Disorder Hypertension Obesity ASSESSMENT: The patient says that sometimes he feels as if people are talking about him behind his back. He says saman it bothers him that people keep nagging at him and then they wonder why he flips out but it is because many times he doesn't want to talk about some things, he only needs to calm down, regroup himself but they don't listen. MANAGEMENT PLAN: Will continues with current treatment plan. He says he is taking his medications and attending groups and this is helping. TIME SPENT: 20 minutes. Vital Signs Vital Signs Date Time Temp Pulse Resp B/P (MAP) Pulse Ox O2 Delivery O2 Flow Rate FiO2 02/15/20 16:33 97.9 90 18 135/66 (89) 02/15/20 08:45 Room Air 02/14/20 08:10 98 Current Medications Current Medications Medications (Trade) Dose Ordered Sig/Tyler Route PRN Reason Start Time Stop Time Status Last Admin Dose Admin Acetaminophen (Tylenol Tab) 650 mg Q6HP PRN PO HEADACHE or DISCOMFORT 02/14/20 04:45 Al Hydrox/Mg Hydrox/Simethicone (Mylanta) 30 ml Q4HP PRN PO HEARTBURN/INDIGESTION 02/14/20 04:45 Buspirone HCl (Buspar) 5 mg BID PO 02/14/20 09:00 02/15/20 09:01 Home Med (Med Rec Complete!) ASDIRECTED XX 02/14/20 05:00 02/14/20 05:08 DC Lisinopril (Prinivil) 5 mg DAILY PO 02/15/20 09:00 02/15/20 09:01 Magnesium Hydroxide (Milk Of Magnesia) 30 ml DAILYPRN PRN PO CONSTIPATION 02/14/20 04:45 Olanzapine (ZyPREXA) 5 mg BID PO 02/14/20 09:00 02/15/20 09:01 Trazodone HCl (Desyrel) 50 mg QHSP PRN PO INSOMNIA 02/14/20 04:45 Vitamin D (Vitamin D) 500 units DAILY PO 02/14/20 09:00 02/15/20 09:01 Allergies Coded Allergies: No Known Allergies (Unverified , 07/31/18) MARVA LEACH MD Feb 15, 2020 17:59
[2020-02-16 06:22] VITALS: BP 114/55
[2020-02-16] MEDS: busPIRone 5 MG TAB PO SCH ×2 (08:05→21:44)
[2020-02-16] MEDS: VITAMIN D 1,000 INTERNATIONAL UNITS TABLET PO SCH (08:05)
[2020-02-16] MEDS: PILL CUTTER 1 EACH XX PRN (08:05)
[2020-02-16] MEDS: lisinopriL 5 MG TAB PO SCH (08:06)
[2020-02-16] MEDS: OLANZapine 5 MG TAB PO SCH ×2 (08:06→21:44)
--- NOTE | 2020-02-16 14:48 | MHIPNPDOC ---
[facility] Progress Note Progress Note DATE OF SERVICE: 02/16/20 HISTORY: As per previous notes: "HISTORY OF THE PRESENT ILLNESS: According to the ED report: Patient is a 20 -year-old Single, Disabiled, Domiciled, Caucasia n, male, who was brought to [facility] after he made a suicidal statement to his friend. Patient recently lost his father a month ago, reports that he has been feeling very depressed and acted out when his friend made a rude comment, stated that he wanted to hit this person but instead he began to break things and said "I really want to kill myself." He stated that he was angry and not actually suicidal. "I like to be myself when I am angry, and if I am not by myself I will start wailing because some people don't respect my boundaries." VITAL SIGNS: See below. NEW TEST RESULTS: See below CURRENT MEDICATIONS: See below. MENTAL STATUS EXAMINATION: General Appearance: disheveled, appears stated age, hospital scrubs/clothing Build: overweight Demeanor: superficially cooperative but he seems irritable and angry Eye Contact: He has an angry look on his eyes Activity: slow Behavior: withdrawn, guarded Speech: needs prompting, not spontaneous, not fluid. Normal tone, low volume, slow Mood: depressed/irritable Affect: flat, constricted Thought Process: linear but not logical, he appears paranoid Thought Content (Delusions): denies SI, HI, AVH but at times he gives me the impression that he could be responding to internal stimuli Thought Content (Other): denies thought delusions, denies guilty thoughts, reports angry thoughts about people that he thinks are invading his space Perception (Hallucinations): none reported Perception (Other): none reported Cognition (Impairment of): none reported Cognition(Intelligence Est.): borderline Oriented: Awake, Alert, Oriented times three Insight: fair Judgment: Fair Psychosis: Denies Diagnoses Major Depressive Disorder, Recurrent, Mild Unspecified Anxiety Disorder Intellectual Disability Adjustment Disorder with Mixed Disturbances of Emotions and Conduct Tobacco Use Disorder Hypertension Obesity ASSESSMENT: the patient seems paranoid, he is very guarded, he has been taking Olanzapine 5 mgs PO BID but he is still very guarded. he says he feels tired after he takes one of the medications, it could be Zyprexa. I'm going to increase the dose a little bit, to 7.5 mgs PO BID MANAGEMENT PLAN: Increase Zyprexa to 7.5 mgs PO BID Time Spent: 15 minutes Vital Signs Vital Signs Date Time Temp Pulse Resp B/P (MAP) Pulse Ox O2 Delivery O2 Flow Rate FiO2 02/16/20 08:24 Room Air 02/16/20 08:06 140/70 02/16/20 06:22 97.9 71 16 02/14/20 08:10 98 Current Medications Current Medications Medications (Trade) Dose Ordered Sig/Tyler Route PRN Reason Start Time Stop Time Status Last Admin Dose Admin Acetaminophen (Tylenol Tab) 650 mg Q6HP PRN PO HEADACHE or DISCOMFORT 02/14/20 04:45 Al Hydrox/Mg Hydrox/Simethicone (Mylanta) 30 ml Q4HP PRN PO HEARTBURN/INDIGESTION 02/14/20 04:45 Buspirone HCl (Buspar) 5 mg BID PO 02/14/20 09:00 02/16/20 08:05 Home Med (Med Rec Complete!) ASDIRECTED XX 02/14/20 05:00 02/14/20 05:08 DC Lisinopril (Prinivil) 5 mg DAILY PO 02/15/20 09:00 02/16/20 08:06 Magnesium Hydroxide (Milk Of Magnesia) 30 ml DAILYPRN PRN PO CONSTIPATION 02/14/20 04:45 Olanzapine (ZyPREXA) 5 mg BID PO 02/14/20 09:00 02/16/20 08:06 Trazodone HCl (Desyrel) 50 mg QHSP PRN PO INSOMNIA 02/14/20 04:45 Vitamin D (Vitamin D) 500 units DAILY PO 02/14/20 09:00 02/16/20 08:05 Allergies Coded Allergies: No Known Allergies (Unverified , 07/31/18) MARVA LEACH MD Feb 16, 2020 14:36
[2020-02-16 16:41] VITALS: BP 121/70
[2020-02-16] MEDS ORDERED: diphenhydrAMINE 50MG CAP PO ONE (22:15)
[2020-02-17 06:44] VITALS: BP 116/68
[2020-02-17] MEDS: PILL CUTTER 1 EACH XX PRN (08:09)
[2020-02-17] MEDS: VITAMIN D 1,000 INTERNATIONAL UNITS TABLET PO SCH (08:09)
[2020-02-17] MEDS: busPIRone 5 MG TAB PO SCH ×2 (08:10→20:01)
[2020-02-17] MEDS: lisinopriL 5 MG TAB PO SCH (08:10)
[2020-02-17] MEDS: OLANZapine 5 MG TAB PO SCH ×2 (08:10→20:01)
--- NOTE | 2020-02-17 11:59 | MHIPNPDOC ---
[facility] Progress Note Progress Note DATE OF SERVICE: 02/17/20 HISTORY: As per previous notes: "HISTORY OF THE PRESENT ILLNESS: According to the ED report: Patient is a 20 -year-old Single, Disabiled, Domiciled, Caucasia n, male, who was brought to [facility] after he made a suicidal statement to his friend. Patient recently lost his father a month ago, reports that he has been feeling very depressed and acted out when his friend made a rude comment, stated that he wanted to hit this person but instead he began to break things and said "I really want to kill myself." He stated that he was angry and not actually suicidal. "I like to be myself when I am angry, and if I am not by myself I will start wailing because some people don't respect my boundaries." VITAL SIGNS: See below. NEW TEST RESULTS: See below CURRENT MEDICATIONS: See below. MENTAL STATUS EXAMINATION: General Appearance: disheveled, appears stated age, hospital scrubs/clothing Build: overweight Demeanor: superficially cooperative but he seems irritable and angry Eye Contact: He has an angry look on his eyes Activity: slow Behavior: withdrawn, guarded Speech: needs prompting, not spontaneous, not fluid. Normal tone, low volume, slow Mood: depressed/irritable Affect: flat, constricted Thought Process: linear but not logical, he appears paranoid Thought Content (Delusions): denies SI, HI, AVH but at times he gives me the impression that he could be responding to internal stimuli Thought Content (Other): denies thought delusions, denies guilty thoughts, reports angry thoughts about people that he thinks are invading his space Perception (Hallucinations): none reported Perception (Other): none reported Cognition (Impairment of): none reported Cognition(Intelligence Est.): borderline Oriented: Awake, Alert, Oriented times three Insight: fair Judgment: Fair Psychosis: Denies Diagnoses Major Depressive Disorder, Recurrent, Mild Unspecified Anxiety Disorder Intellectual Disability Adjustment Disorder with Mixed Disturbances of Emotions and Conduct Tobacco Use Disorder Hypertension Obesity ASSESSMENT: Patient seen today, denies depression, SI/HI/states that the increase in Zyprexa is helping with his irritability. Patient worries about his medications. I discussed with him his current medications, dosage, frequently and indications. He verbalized understanding. He wants to be discharged after lunch tomorrow and states that he is going to stay with this mother. MANAGEMENT PLAN: Continue all medications, discharge tomorrow pending that patient can go to his mother's home. Time Spent: 15 minutes Vital Signs Vital Signs Date Time Temp Pulse Resp B/P (MAP) Pulse Ox O2 Delivery O2 Flow Rate FiO2 02/17/20 08:10 116/68 02/17/20 06:44 96.5 75 12 Room Air 02/14/20 08:10 98 Current Medications Current Medications Medications (Trade) Dose Ordered Sig/Tyler Route PRN Reason Start Time Stop Time Status Last Admin Dose Admin Acetaminophen (Tylenol Tab) 650 mg Q6HP PRN PO HEADACHE or DISCOMFORT 02/14/20 04:45 Al Hydrox/Mg Hydrox/Simethicone (Mylanta) 30 ml Q4HP PRN PO HEARTBURN/INDIGESTION 02/14/20 04:45 Buspirone HCl (Buspar) 5 mg BID PO 02/14/20 09:00 02/17/20 08:10 Home Med (Med Rec Complete!) ASDIRECTED XX 02/14/20 05:00 02/14/20 05:08 DC Lisinopril (Prinivil) 5 mg DAILY PO 02/15/20 09:00 02/17/20 08:10 Magnesium Hydroxide (Milk Of Magnesia) 30 ml DAILYPRN PRN PO CONSTIPATION 02/14/20 04:45 Olanzapine (ZyPREXA) 5 mg BID PO 02/14/20 09:00 02/16/20 14:49 DC 02/16/20 08:06 Olanzapine (ZyPREXA) 7.5 mg BID PO 02/16/20 21:00 02/17/20 08:10 Trazodone HCl (Desyrel) 50 mg QHSP PRN PO INSOMNIA 02/14/20 04:45 Vitamin D (Vitamin D) 500 units DAILY PO 02/14/20 09:00 02/17/20 08:09 Allergies Coded Allergies: No Known Allergies (Unverified , 07/31/18) ROME GREENFIELD NP Feb 17, 2020 11:59
[2020-02-17 18:03] VITALS: BP 138/72
[2020-02-18 06:45] VITALS: BP 130/61
[2020-02-18] MEDS: VITAMIN D 1,000 INTERNATIONAL UNITS TABLET PO SCH (08:23)
[2020-02-18] MEDS: PILL CUTTER 1 EACH XX PRN (08:23)
[2020-02-18 08:24] VITALS: BP 130/61
[2020-02-18] MEDS: OLANZapine 5 MG TAB PO SCH (08:24)
[2020-02-18] MEDS: lisinopriL 5 MG TAB PO SCH (08:24)
[2020-02-18] MEDS: busPIRone 5 MG TAB PO SCH (08:24)
[2020-02-18] MEDS ORDERED: BUSP5TA PO (09:18)
[2020-02-18] MEDS ORDERED: OLAN15TA PO (09:18)
[2020-02-18] MEDS ORDERED: LISI10TA4 PO (09:18)
[2020-02-18] MEDS ORDERED: CHOL25TA2 PO (09:18)
--- NOTE | 2020-02-18 09:30 | MHDSPDOC ---
[facility] Discharge Summary Discharge Summary DATE OF ADMISSION: Feb 14, 2020 at 04:50 DATE OF DISCHARGE: February 18, 2020 at 0920 DISCHARGE DIAGNOSES: Major Depressive Disorder, Recurrent, Mild Unspecified Anxiety Disorder Intellectual Disability Adjustment Disorder with Mixed Disturbances of Emotions and Conduct Tobacco Use Disorder Hypertension Obesity REASON FOR ADMISSION: Patient is a 20 -year-old Single, Disabled, Domiciled, Cau alec, male, who was brought to [facility] after he made a suicidal statement to his friend. Patient recently lost his father a month ago, reports that he has been feeling very depressed and acted out when his friend made a rude comment, stated that he wanted to hit this person but instead he began to break things and said "I really want to kill myself." He stated that he was angry and not actually suicidal. "I like to be myself when I am angry, and if I am not by myself I will start wailing because some people don't respect my boundaries." CONSULTANTS INVOLVED: See Medical H + P by Hospitalist TREATMENT AND PROGRESS ON THE UNIT : Patient was admitted to the [facility] on a 9.39 legal status he was afforded the following treatment modalities: 1) Individual Therapy 2) Group Therapy 3) Medication Management 4) Milieu Therapy 5) Safe Environment HOSPITAL COURSE: Patient was admitted on [facility] on a 9.39 legal status. He was started on medications. He stated that he use to take Risperdal but had not taken it for almost 12 months. He was started on Buspar and Zyprexa. Zyprexa was titrated to therapeutic levels. DISCHARGE ASSESSMENT: Today is day 5 of patient's admission. He is being discharged today as he meets criteria for discharge. During the weekend and yesterday the patient had reported no suicidal/homicidal ideation, planning or intent. He reported that the Zyprexa was effective and that he felt that he had improved. At this time, patient has a normal mental status and he does not want to extend his hospitalization with a voluntary admission. He reports that he will return to his roommate's apartment, reporting to be that he had spoken to this person yesterday. According to patient yesterday, we had planned on st aying with his mother. In either case, patient meets criteria for discharge and he has at least two places for housing. MENTAL STATUS EXAMINATION ON DISCHARGE: Patient is a 20 -year-old Single, Disabled, Domiciled, , male, who was brought to [facility] after he made a suicidal statement to his friend. Speech: Is fluid, conversant, normal rate, low tone and volume Language skills are intact Thought processes including: linear and goal oriented Thought content: denies depression and anxiety. Abstract reasoning, and computation: fair Description of associations: denies, none observed Description of abnormal or psychotic thoughts: denies, none observed. Judgment: fair Insight: fair Orientation: alert and oriented to person, place, time and situation Recent and remote memory: intact Attention span and concentration: good Language: expansive Fund of knowledge: below average Mood: euthymic Affect: reactive MEDICATIONS ON DISCHARGE: See Medication Reconciliation PLAN/FOLLOWUP ARRANGEMENTS: [facility], please see Labor Standards Director's notes The amount of time spent in the coordination of care for this patient was approximately 20 minutes. Vital Signs/I&Os Vital Signs Date Time Temp Pulse Resp B/P (MAP) Pulse Ox O2 Delivery O2 Flow Rate FiO2 02/18/20 08:24 130/61 02/18/20 06:45 98.1 72 14 02/17/20 06:44 Room Air 02/14/20 08:10 98 Medications Scheduled Buspirone HCl (Buspirone HCl) 5 Mg Tablet, 5 MG PO BID for Anxiety, #14 Cholecalciferol (Vitamin D3) (Vitamin D3) 25 Mcg Tablet, 500 UNITS PO DAILY for Vitamin Supplement, #7 Lisinopril (Lisinopril) 10 Mg Tab, 10 MG PO DAILY for Blood Pressure, #7 Olanzapine (Olanzapine) 15 Mg Tablet, 15 MG PO QHS for Antipsychotic/Agitation, #7 Allergies Coded Allergies: No Known Allergies (Unverified , 07/31/18) ROME GREENFIELD GAS WELL PUMPER Feb 18, 2020 09:30
[2020-02-18] MEDS ORDERED: LISI-542 PO ×2 (12:48→12:54)
== END 2020-02-18 12:50 | disposition home or self-care (01) | DRG 885 ==
LOC: M ED 01:45 → M ED INP 04:50 → M PSY 08:01
PROVIDERS: ADMIT Psychiatry & Neurology Addiction Medicine; ATTEND Psychiatry & Neurology Psychiatry
DX: F33.0 Major depressive disorder, recurrent, mild (principal); R45.851 Suicidal ideations; F41.9 Anxiety disorder, unspecified; E66.9 Obesity, unspecified; I10 Essential (primary) hypertension; F17.200 Nicotine dependence, unspecified, uncomplicated; F79 Unspecified intellectual disabilities; F43.25 Adjustment disorder with mixed disturbance of emotions and conduct; Z79.899 Other long term (current) drug therapy

== ENCOUNTER 2020-02-23 04:47 | Emergency (ER) | payer MEDICARE, MEDICAID ==
[~2020-02-23] VITALS: Ht 188 cm; Wt 145.4 kg
[~2020-02-23 04:47] MED LIST changes: +CHOL25TA2 PO; +LISI-542 PO; +OLAN15TA PO; +RISP1TAB3
[2020-02-23 05:56] LABS: HEMATOCRIT 45.2 % (42.0-52.0); HEMOGLOBIN 14.8 g/dl (13.5-17.5); MEAN CORPUSCULAR HEMOGLOBIN 29.5 pg (27.0-33.0); MEAN CORPUSCULAR HGB CONC 32.7 g/dl (32.0-36.5); MEAN CORPUSCULAR VOLUME 90.2 fl (80.0-96.0); PLATELET COUNT, AUTOMATED 337 10^3/uL (150-450); RED BLOOD COUNT 5.01 10^6/uL (4.30-6.10); WHITE BLOOD COUNT 13.3 10^3/uL (4.0-10.0)
[2020-02-23 06:10] LABS: ACETAMINOPHEN LEVEL < 2.0 UG/ML (10.0-30.0); ALBUMIN 3.9 GM/DL (3.2-5.2); ALT/SGPT 32 U/L (12-78); BILIRUBIN,DIRECT < 0.1 MG/DL (0.0-0.2); BILIRUBIN,TOTAL 0.3 MG/DL (0.2-1.0); BLOOD UREA NITROGEN 15 MG/DL (7-18); CALCIUM LEVEL 8.9 MG/DL (8.5-10.1); CARBON DIOXIDE LEVEL 27 MEQ/L (21-32); CHLORIDE LEVEL 107 MEQ/L (98-107); CREATININE FOR GFR 0.92 MG/DL (0.70-1.30); ETHYL ALCOHOL (ETHANOL) < 0.003 % (0.000-0.010); GLOMERULAR FILTRATION RATE > 60.0 (>60); GLUCOSE, FASTING 112 MG/DL (70-100); SALICYLATE LEVEL 1.9 MG/DL (5.0-30.0); SODIUM LEVEL 140 MEQ/L (136-145); TOTAL PROTEIN 7.3 GM/DL (6.4-8.2)
[2020-02-23 06:11] LABS: AMPHETAMINES LEVEL URINE NEGATIVE (NEGATIVE); BARBITURATES URINE NEGATIVE (NEGATIVE); BENZODIAZEPINES URINE NEGATIVE (NEGATIVE); CANNABINOIDS URINE NEGATIVE (NEGATIVE); COCAINE METABOLITE URINE NEGATIVE (NEGATIVE); METHADONE URINE NEGATIVE (NEGATIVE); OPIATES URINE NEGATIVE (NEGATIVE); PHENCYCLIDINE URINE NEGATIVE (NEGATIVE)
[2020-02-23] MEDS ORDERED: ISOVUE-370 76% 100ML VIAL As Ordered ONE (09:10)
[2020-02-23] MEDS: busPIRone 5 MG TAB PO SCH ×2 (09:13→21:33)
[2020-02-23] MEDS: VITAMIN D 1,000 INTERNATIONAL UNITS TABLET PO SCH (09:13)
[2020-02-23] MEDS: lisinopriL 5 MG TAB PO SCH (09:14)
[2020-02-23] MEDS ORDERED: BUSP5TA PO (13:00)
[2020-02-23] MEDS ORDERED: D31000TA2 PO (13:00)
[2020-02-23] MEDS ORDERED: LISI-542 PO (13:00)
[2020-02-23] MEDS ORDERED: OLAN15TA PO (13:00)
[2020-02-23] MEDS ORDERED: hydrOXYzine 25 MG TAB PO ONE (20:45)
[2020-02-23] MEDS ORDERED: OLANZapine 5 MG TAB PO SCH (21:00)
[2020-02-24 10:18] VITALS: BP 111/64
[2020-02-24] MEDS: busPIRone 5 MG TAB PO SCH (10:18)
[2020-02-24] MEDS: lisinopriL 5 MG TAB PO SCH (10:18)
[2020-02-24] MEDS: VITAMIN D 1,000 INTERNATIONAL UNITS TABLET PO SCH (10:18)
[2020-02-24 18:15] VITALS: BP 121/64
--- NOTE | 2020-02-24 22:00 | ECGEPIP ---
[facility] - ED Test Date: 2020-02-23 Pat Name: CISCO LAZO Department: Room: - Gender: Male Group Managing Director: alec : 2000 Requested By: Grisel Perez Order Number: [id number] Reading MD: Kevin Lee Measurements Intervals [place] Rate: 81 P: 49 NC: 132 QRS: 49 QRSD: 103 T: 11 QT: 390 QTc: 453 Interpretive Statements SINUS RHYTHM NSTTW ABNORMALITY(S) SIMILAR TO 03/24/18 Electronically Signed on 02-24-2020 22:00:22 EST by Kevin Lee
== END 2020-02-24 18:18 ==
LOC: M ED 04:47
DX: R45.850 Homicidal ideations (principal); F33.0 Major depressive disorder, recurrent, mild; F41.9 Anxiety disorder, unspecified; F79 Unspecified intellectual disabilities; F17.200 Nicotine dependence, unspecified, uncomplicated; Z79.899 Other long term (current) drug therapy
CPT/HCPCS: 36415; 80048; 80076; 80307; 84443; 85027; 93005; 99285; G0480; Q9967; U0002

== ENCOUNTER 2020-07-07 08:29 | Inpatient (IN) | payer MEDICARE, MEDICAID ==
[~2020-07-07] VITALS: Ht 188 cm; Wt 127.7 kg
[~2020-07-07 08:29] MED LIST changes: +D31000TA2 PO; -LISI-542 PO; +LISI-898 PO; +LISI10TA22 PO; -LISI10TA4 PO; +RISP-8; +RISP-8 PO; -RISP1TAB3; -RISP1TAB3 PO
[2020-07-07 09:24] LABS: HEMATOCRIT 47.9 % (42.0-52.0); HEMOGLOBIN 16.3 g/dl (13.5-17.5); MEAN CORPUSCULAR VOLUME 91.1 fl (80.0-96.0); PLATELET COUNT, AUTOMATED 345 10^3/uL (150-450); RED BLOOD COUNT 5.26 10^6/uL (4.30-6.10); WHITE BLOOD COUNT 13.4 10^3/uL (4.0-10.0)
[2020-07-07 09:50] LABS: AMPHETAMINES LEVEL URINE NEGATIVE (NEGATIVE); BARBITURATES URINE NEGATIVE (NEGATIVE); BENZODIAZEPINES URINE NEGATIVE (NEGATIVE); CANNABINOIDS URINE NEGATIVE (NEGATIVE); COCAINE METABOLITE URINE NEGATIVE (NEGATIVE); METHADONE URINE NEGATIVE (NEGATIVE); OPIATES URINE NEGATIVE (NEGATIVE); PHENCYCLIDINE URINE NEGATIVE (NEGATIVE)
[2020-07-07 10:03] LABS: ACETAMINOPHEN LEVEL < 2.0 UG/ML (10.0-30.0); ALBUMIN 4.1 GM/DL (3.2-5.2); ALT/SGPT 22 U/L (12-78); BILIRUBIN,DIRECT 0.1 MG/DL (0.0-0.2); BILIRUBIN,TOTAL 0.5 MG/DL (0.2-1.0); BLOOD UREA NITROGEN 10 MG/DL (7-18); CALCIUM LEVEL 9.6 MG/DL (8.5-10.1); CARBON DIOXIDE LEVEL 27 MEQ/L (21-32); CHLORIDE LEVEL 108 MEQ/L (98-107); CREATININE FOR GFR 0.74 MG/DL (0.70-1.30); ETHYL ALCOHOL (ETHANOL) < 0.003 % (0.000-0.010); GLOMERULAR FILTRATION RATE > 60.0 (>60); GLUCOSE, FASTING 116 MG/DL (70-100); POTASSIUM SERUM 4.2 MEQ/L (3.5-5.1); SALICYLATE LEVEL 2.7 MG/DL (5.0-30.0); SODIUM LEVEL 138 MEQ/L (136-145); TOTAL PROTEIN 7.6 GM/DL (6.4-8.2)
[2020-07-07] MEDS ORDERED: LORazepam 2 MG TAB PO ONE (11:40)
[2020-07-07] MEDS ORDERED: MAALOX 30 ML SUSP *UDC PO PRN (11:55)
[2020-07-07] MEDS ORDERED: traZODone 50 MG TAB PO PRN (11:55)
[2020-07-07] MEDS ORDERED: ACETAMINOPHEN TAB 650MG DOSE (2X325MG) PO PRN (11:55)
[2020-07-07] MEDS ORDERED: MOM 30ML SUSPENSION UDC PO PRN (11:55)
[2020-07-07 12:23] LABS: RSV AMPLIFICATION NEGATIVE (NEGATIVE)
[2020-07-08 06:00] VITALS: BP 142/63
--- NOTE | 2020-07-08 11:57 | MHHPE ---
[facility] HISTORY AND PHYSICAL DATE OF ADMISSION: 07/07/2020 IDENTIFYING DATA: He is a 20-year-old male, single, living with his friends, supported by Social Security Disability, who was admitted because of suicidal thoughts. CHIEF COMPLAINT: "I broke up with my girlfriend and felt suicidal." HISTORY OF PRESENT ILLNESS: He broke up with his girlfriend a week ago, got increasingly depressed, called his mother, started arguing, and he told his mother that he wanted to kill himself. His mother called the police who brought him in. The patient has a long history of mental illness. He was admitted several times. The last admission was in [place]. He was discharged with Depakote and Zyprexa. However, he stopped taking his medications about four months ago and since then, he is becoming more and more depressed. He reports at times he has mood swings, but he is not clear about any manic episodes. He reports that he has some anger outbursts and crying spells. He denies any suicidal thoughts. PAST PSYCHIATRIC HISTORY: He has had about 10 psychiatric hospitalizations. He started seeing a psychiatrist when he was 14 years old. SUICIDAL HISTORY: He denies suicidal attempt. DRUG AND ALCOHOL HISTORY: The patient denies the use of drug or alcohol. MEDICAL HISTORY: He has a history of hypertension. FAMILY HISTORY: Mother and grandmother have a history of bipolar disorder. PERSONAL HISTORY: He was raised by his mother and grandmother and grandfather. He completed high school graduation. He has one sister. He has worked some seasonal jobs. He denies any history of physical or sexual abuse. MENTAL STATUS EXAMINATION: Somewhat obese, casually dressed, cooperative, made good eye contact. Psychomotor activity is normal. Mood is depressed. Affect is constricted. Thought process is linear, goal directed. Speech, rate, rhythm, and volume are good. Thought content, denied any suicidal or homicidal ideas. Denied any hallucinations or delusions. Insight and judgment are limited. VITAL SIGNS: Temperature 97.9, pulse 72, respiratory rate 18, blood pressure 142/63, pulse oximetry 99. LABORATORY DATA: 1. CBC is within normal limits. WBC was slightly high. 2. CMP within normal limits. 3. Toxicology was negative. REVIEW OF SYSTEMS: CONSTITUTIONAL: Denied any fever or night sweats. HEENT: Denied any headache, epistaxis, sore throat. RESPIRATORY SYSTEM: Denied any cough or shortness of breath. CARDIOVASCULAR SYSTEM: Denied any chest pain or palpitations. GASTROINTESTINAL: Denied any abdominal pain or distention. GENITOURINARY: Denied dysuria or hematuria. NEURO: Denies any dizziness, giddiness. MUSCULOSKELETAL: Denied any joint pains. DIAGNOSES: 1. Depressive disorder, not otherwise specified. 2. Rule out bipolar 2 disorder. PLAN: 1. Admit to [facility]. 2. To be seen by Hospitalist for medical needs. 3. He will be kept on suicide watch. 4. He will be seen by Power Plant Operator Apprentice and Case Management. 5. He will go to activities. He will be provided with individual group and milieu therapy. MEDICATION: 1. Zyprexa 10 mg at night. 2. Depakote ER 500 mg at night. 3. Continue the rest of the p.r.n. medications. ESTIMATED LENGTH OF STAY: Four to five days. TIME SPENT: 45 minutes.
[2020-07-08] MEDS: DIVALPROEX 250 MG TAB PO SCH ×2 (12:08→20:29)
--- NOTE | 2020-07-08 13:15 | HPEPDOC ---
[facility] Medical History & Physical Date of Admission Jul 07, 2020 Date of Service: Jul 08, 2020 Attending Physician: Ernestina Gray MD History and Physical MEDICAL CONSULT HISTORY OF PRESENT ILLNESS: REVIEW OF SYSTEMS: Neg except for what is mentioned above HISTORY OF PRESENT ILLNESS: Patient is a 20 y/o M with PMH of anxiety, depression, HTN, obesity , history of multiple inpatient hospitalizations for depression who presented to [facility] emergency room on 07/07/2020 after making suicidal comments about overdosing to his mother. The patient states he's had a recent stressor at home including his girlfriend breaking up with him recently. He made a comment to his mother that he was going to overdose and kill himself. The patient was then brought to the emergency room for further evaluation. He was evaluated later admitted to [facility] with a diagnosis of unspecified depressive disorder. On evaluation today, patient denies suicidal ideation, homicidal ideation, plan for suicide, paranoia, difficulty sleeping, decreased appetite. He does admit to poor concentration, hopelessness/hopelessness at times. He has a history of multiple inpatient mental health hospitalizations for depression. PAST MEDICAL HISTORY: 1. Obesity 2. Hypertension. 3. Anxiety/depression. PAST SURGICAL HISTORY: 1. Right testicular torsion surgery. FAMILY HISTORY: Father: Kidney disease. at 51 y/o Mother: DM type II. Alive SOCIAL HISTORY: Smoker 11-1/2 pack per day for 6 years. Drinks occasional alcohol. Denies drug use. Lives with friends in the local area. Full code. ALLERGIES: Please see below. HOME MEDICATIONS: Please see below. PHYSICAL EXAMINATION: VS: Please see below CONSTITUTIONAL: No acute distress, resting comfortably, AAO x 3 EYES: PERRLA, EOM intact HENT, MOUTH: Normocephalic, atraumatic, moist mucous membranes NECK: SUPPLE, no JVD, no lymphadenopathy, no carotid bruit CV: Regular rate and rhythm, S1S2 normal, no murmurs/rubs/gallops RESPIRATORY: Clear to auscultation bilaterally, no rales/rhonchi/wheezes GI: BS positive in 4 quadrants, soft, nontender, nondistended, no rebound or guarding, no organomegaly : Deferred MUSCULOSKELETAL: Normal ROM. No cyanosis, clubbing, swelling, joint deformity, extremity edema INTEGUMENTARY: Intact, no rashes, no lesions, no erythema NEUROLOGIC: Cranial Nerves II-XII are intact, no focal deficits PSYCHIATRIC: Flat affect LABORATORY DATA: Please see below IMAGING: None ASSESSMENT: 20 y/o M with PMH of anxiety, depression, HTN, obesity admitted for unspecified depressive disorder, suicidal ideations. PLAN: Unspecified depressive disorder, suicidal ideations -Hx of multiple [facility] admission for depression, hx of suicide attempts in past -Plan per psych HTN -Stable DISPOSITION: Thank you kindly for this consult. At this time will sign off. If we are needed at any time to reconsult, please do not hesitate to contact us. Vital Signs Vital Signs Date Time Temp Pulse Resp B/P (MAP) Pulse Ox O2 Delivery O2 Flow Rate FiO2 07/08/20 06:00 97.9 72 18 142/63 (89) 99 Home Medications No Active Prescriptions or Reported Meds Allergies Coded Allergies: No Known Allergies (Unverified , 02/23/20) A-FIB/CHADSVASC A-FIB History Current/History of A-Fib/PAF?: No Current PO Anticoag Therapy: No Age/Risk Factor Scoring CHADSVASC: CHADSVASC Response (Comments) Value Age Risk Factor Age < 65 years old 0 Gender Risk Factor Male 0 Hx of CHF No 0 Hx of HTN Yes 1 Hx of Stroke/TIA/or VTE No 0 Hx of Diabetes No 0 Hx of Vascular Disease No 0 Total 1 Treatment Treatment ordered: NONE Ernestina Gray MD Jul 08, 2020 13:15
[2020-07-08 17:52] VITALS: BP 137/71
[2020-07-08] MEDS: OLANZapine 5 MG TAB PO SCH (20:29)
[2020-07-09 06:32] VITALS: BP 108/56
[2020-07-09] MEDS: DIVALPROEX 250 MG TAB PO SCH ×2 (10:10→21:53)
[2020-07-09 16:00] VITALS: BP_SYST 115; BP_SYST 127; BP_DIAS 58; BP_DIAS 65
[2020-07-09] MEDS: OLANZapine 5 MG TAB PO SCH (21:53)
[2020-07-10 06:38] VITALS: BP 106/54
[2020-07-10] MEDS: DIVALPROEX 250 MG TAB PO SCH ×2 (08:58→20:18)
--- NOTE | 2020-07-10 09:13 | MHIPN ---
PROGRESS NOTE DATE: 07/09/2020 SUBJECTIVE: "I've been feeling better. I don't have suicidal thoughts." OBJECTIVE: He is a 20-year-old male, single, living with his friends. He was admitted because of suicidal thoughts. He reportedly broke up with his girlfriend and told his mother that he wants to kill himself. The mother called the police and he was brought in her. He has had more than ten psychiatric hospitalizations. He started seeing a psychiatrist when he was 14 years old. He denies any suicide attempts. Currently he is somewhat depressed and with constricted affect. However he is attending groups. MENTAL STATUS EXAMINATION: The patient is moderately obese, neatly dressed, cooperative. He made good eye contact. Psychomotor activity is normal. Mood is depressed. Affect is constricted. Thought process is lineal goal directed. Speech, rate, rhythm and volume are good. Thought content he denies any suicidal or homicidal ideas. He denied any hallucinations or delusions. Insight and judgment are limited. VITAL SIGNS: Temperature 97.3, pulse is 74, respirations 18, blood pressure 108/56, pulse oximetry 95%. LABORATORY STUDIES: CBC within normal limits. However his WBC was slightly high. Chemistries, CMP within normal limits. Toxicology was negative. Serology was negative for COVID-19. DIAGNOSIS: 1. Major depressive disorder. 2. Rule out bipolar 2 disorder. PLAN: 1. Continue medications. 2. Continue Zyprexa 10 mg at night. 3. Depakote 500 mg at night. ESTIMATED LENGTH OF STAY: 3-4 days. TIME SPENT: Twenty-five minutes.
--- NOTE | 2020-07-10 14:53 | MHIPNPDOC ---
[facility] Progress Note Progress Note DATE OF SERVICE: 07/10/20 [facility] NAME: CISCO LAZO : 2000 MED REC#: [id number] ROOM: Heidy GAONA Dictating: CAMERON JOY MD PATIENT STATUS: ADM IN Cosign: REPORT #: [id number] Other : cc: [~ rep ct ivnm] INPATIENT PROGRESS NOTE Printed:[~ rep prt dt last] [~ rep prt tm last] Draft Page 2 of [address] [address] INPATIENT PROGRESS NOTE INPATIENT PROGRESS NOTE Printed:[~ rep prt dt last] [~ rep prt tm last] Draft Page 1 of 2 SUBJECTIVE: "I've been feeling better. I don't have suicidal thoughts." OBJECTIVE: He is a 20-year-old male, single, living with his friends. He was admitted because of suicidal thoughts. He reportedly broke up with his girlfriend and told his mother that he wants to kill himself. The mother called the police and he was brought in her. He has had more than ten psychiatric hospitalizations. He started seeing a psychiatrist when he was 14 years old. He denies any suicide attempts. Currently he is somewhat depressed and with constricted affect. However he is attending groups.Sleep and appetite are fine. MENTAL STATUS EXAMINATION: The patient is moderately obese, neatly dressed, cooperative. He made good eye contact. Psychomotor activity is normal. Mood is depressed. Affect is constricted. Thought process is lineal goal directed. Speech, rate, rhythm and volume are good. Thought content he denies any suicidal or homicidal ideas. He denied any hallucinations or delusions. Insight and judgment are limited. . LABORATORY STUDIES: CBC within normal limits. However his WBC was slightly high. Chemistries, CMP within normal limits. Toxicology was negative. Serology was negative for COVID-19. DIAGNOSIS: 1. mood disorder unspecified. 2. Rule out bipolar 2 disorder. PLAN: 1. Continue medications. 2. Continue Zyprexa 10 mg at night. 3. Depakote 500 mg at night. ESTIMATED LENGTH OF STAY: 3-4 days. TIME SPENT: Twenty-five minutes. Vital Signs Vital Signs Date Time Temp Pulse Resp B/P (MAP) Pulse Ox O2 Delivery O2 Flow Rate FiO2 07/10/20 06:38 97.6 70 18 106/54 (71) 95 Room Air Current Medications Current Medications Medications (Trade) Dose Ordered Sig/Tyler Route PRN Reason Start Time Stop Time Status Last Admin Dose Admin Acetaminophen (Tylenol Tab) 650 mg Q6HP PRN PO HEADACHE or DISCOMFORT 07/07/20 11:55 Al Hydrox/Mg Hydrox/Simethicone (Mylanta) 30 ml Q4HP PRN PO HEARTBURN/INDIGESTION 07/07/20 11:55 Divalproex Sodium (Depakote) 250 mg BID PO 07/08/20 09:00 07/10/20 08:58 Home Med (Med Rec Complete!) ASDIRECTED XX 07/07/20 11:15 07/07/20 11:17 DC Magnesium Hydroxide (Milk Of Magnesia) 30 ml DAILYPRN PRN PO CONSTIPATION 07/07/20 11:55 Olanzapine (ZyPREXA) 5 mg QHS PO 07/08/20 21:00 07/09/20 21:53 Trazodone HCl (Desyrel) 50 mg QHSP PRN PO INSOMNIA 07/07/20 11:55 Allergies Coded Allergies: No Known Allergies (Unverified , 02/23/20) CAMERON JOY MD Jul 10, 2020 14:53
[2020-07-10 19:43] VITALS: BP 143/70
[2020-07-10] MEDS: OLANZapine 5 MG TAB PO SCH (20:18)
[2020-07-11] MEDS: DIVALPROEX 250 MG TAB PO SCH ×2 (08:09→20:28)
[2020-07-11 08:10] VITALS: BP 132/71
--- NOTE | 2020-07-11 13:44 | MHIPNPDOC ---
[facility] Progress Note Progress Note DATE OF SERVICE: 07/11/20 SUBJECTIVE: "I've been feeling better. I don't have suicidal thoughts." OBJECTIVE: He is a 20-year-old male, single, living with his friends. He was admitted because of suicidal thoughts. He reportedly broke up with his girlfriend and told his mother that he wants to kill himself. The mother called the police and he was brought in her. He has had more than ten psychiatric hospitalizations. He started seeing a psychiatrist when he was 14 years old. He denies any suicide attempts. Currently he is somewhat depressed and with constricted affect. However he is attending groups.Sleep and appetite are fine PT looking for discharge. MENTAL STATUS EXAMINATION: The patient is moderately obese, neatly dressed, cooperative. He made good eye contact. Psychomotor activity is normal. Mood is depressed. Affect is constricted. Thought process is lineal goal directed. Speech, rate, rhythm and volume are good. Thought content he denies any suicidal or homicidal ideas. He denied any hallucinations or delusions. Insight and judgment are limited. . LABORATORY STUDIES: CBC within normal limits. However his WBC was slightly high. Chemistries, CMP within normal limits. Toxicology was negative. Serology was negative for COVID-19. DIAGNOSIS: 1. mood disorder unspecified. 2. Rule out bipolar 2 disorder. PLAN: 1. Continue medications. 2. Continue Zyprexa 5 mg at night. 3. Depakote 500 mg at night. ESTIMATED LENGTH OF STAY: 3-4 days. TIME SPENT: Twenty-five minutes. Vital Signs Vital Signs Date Time Temp Pulse Resp B/P (MAP) Pulse Ox O2 Delivery O2 Flow Rate FiO2 07/11/20 08:10 98.0 76 20 132/71 (91) 99 Room Air Current Medications Current Medications Medications (Trade) Dose Ordered Sig/Tyler Route PRN Reason Start Time Stop Time Status Last Admin Dose Admin Acetaminophen (Tylenol Tab) 650 mg Q6HP PRN PO HEADACHE or DISCOMFORT 07/07/20 11:55 Al Hydrox/Mg Hydrox/Simethicone (Mylanta) 30 ml Q4HP PRN PO HEARTBURN/INDIGESTION 07/07/20 11:55 Divalproex Sodium (Depakote) 250 mg BID PO 07/08/20 09:00 07/11/20 08:09 Home Med (Med Rec Complete!) ASDIRECTED XX 07/07/20 11:15 07/07/20 11:17 DC Magnesium Hydroxide (Milk Of Magnesia) 30 ml DAILYPRN PRN PO CONSTIPATION 07/07/20 11:55 Olanzapine (ZyPREXA) 5 mg QHS PO 07/08/20 21:00 07/10/20 20:18 Trazodone HCl (Desyrel) 50 mg QHSP PRN PO INSOMNIA 07/07/20 11:55 Allergies Coded Allergies: No Known Allergies (Unverified , 02/23/20) CAMERON JOY MD Jul 11, 2020 13:44
[2020-07-11 16:51] VITALS: BP 147/79
[2020-07-11] MEDS: OLANZapine 5 MG TAB PO SCH (20:28)
[2020-07-12 06:00] VITALS: BP 135/71
[2020-07-12] MEDS: DIVALPROEX 250 MG TAB PO SCH ×2 (08:03→20:51)
--- NOTE | 2020-07-12 11:03 | MHIPNPDOC ---
[facility] Progress Note Progress Note DATE OF SERVICE: 07/12/20 SUBJECTIVE: "I've been feeling better. I don't have suicidal thoughts." OBJECTIVE: He is a 20-year-old male, single, living with his friends. He was admitted because of suicidal thoughts. He reportedly broke up with his girlfriend and told his mother that he wants to kill himself. The mother called the police and he was brought in her. He has had more than ten psychiatric hospitalizations. He started seeing a psychiatrist when he was 14 years old. He denies any suicide attempts. Currently he is somewhat depressed and with constricted affect. However he is attending groups.Sleep and appetite are fine PT looking for discharge.attending groups, and interacting with peers. MENTAL STATUS EXAMINATION: The patient is moderately obese, neatly dressed, cooperative. He made good eye contact. Psychomotor activity is normal. Mood is depressed. Affect is constricted. Thought process is lineal goal directed. Speech, rate, rhythm and volume are good. Thought content he denies any suicidal or homicidal ideas. He denied any hallucinations or delusions. Insight and judgment are limited. . LABORATORY STUDIES: CBC within normal limits. However his WBC was slightly high. Chemistries, CMP within normal limits. Toxicology was negative. Serology was negative for COVID-19. DIAGNOSIS: 1. mood disorder unspecified. 2. Rule out bipolar 2 disorder. PLAN: 1. Continue medications. 2. Continue Zyprexa 5 mg at night. 3. Depakote 500 mg at night. ESTIMATED LENGTH OF STAY: 3-4 days. TIME SPENT: Twenty-five minutes. Vital Signs Vital Signs Date Time Temp Pulse Resp B/P (MAP) Pulse Ox O2 Delivery O2 Flow Rate FiO2 07/12/20 06:00 98.2 70 20 135/71 (92) 96 07/11/20 08:10 Room Air Current Medications Current Medications Medications (Trade) Dose Ordered Sig/Tyler Route PRN Reason Start Time Stop Time Status Last Admin Dose Admin Acetaminophen (Tylenol Tab) 650 mg Q6HP PRN PO HEADACHE or DISCOMFORT 07/07/20 11:55 Al Hydrox/Mg Hydrox/Simethicone (Mylanta) 30 ml Q4HP PRN PO HEARTBURN/INDIGESTION 07/07/20 11:55 Divalproex Sodium (Depakote) 250 mg BID PO 07/08/20 09:00 07/12/20 08:03 Home Med (Med Rec Complete!) ASDIRECTED XX 07/07/20 11:15 07/07/20 11:17 DC Magnesium Hydroxide (Milk Of Magnesia) 30 ml DAILYPRN PRN PO CONSTIPATION 07/07/20 11:55 Olanzapine (ZyPREXA) 5 mg QHS PO 07/08/20 21:00 07/11/20 20:28 Trazodone HCl (Desyrel) 50 mg QHSP PRN PO INSOMNIA 07/07/20 11:55 Allergies Coded Allergies: No Known Allergies (Unverified , 02/23/20) CAMERON JOY MD Jul 12, 2020 11:03
[2020-07-12 19:12] VITALS: BP 140/76
[2020-07-12] MEDS: OLANZapine 5 MG TAB PO SCH (20:50)
[2020-07-13 06:31] VITALS: BP 109/77
[2020-07-13] MEDS: DIVALPROEX 250 MG TAB PO SCH ×2 (08:06→20:02)
--- NOTE | 2020-07-13 10:48 | MHIPNPDOC ---
[facility] Progress Note Progress Note DATE OF SERVICE: 07/13/20 SUBJECTIVE: "I've been feeling better. I don't have suicidal thoughts." When i am getting discharged OBJECTIVE: He is a 20-year-old male, single, living with his friends. He was admitted because of suicidal thoughts. He reportedly broke up with his girlfriend and told his mother that he wants to kill himself. The mother called the police and he was brought in her. He has had more than ten psychiatric hospitalizations. He started seeing a psychiatrist when he was 14 years old. He denies any suicide attempts. Currently he is somewhat depressed and with constricted affect. However he is attending groups.Sleep and appetite are fine PT looking for discharge.attending groups, and interacting with peers.Sleep and appetite good MENTAL STATUS EXAMINATION: The patient is moderately obese, neatly dressed, cooperative. He made good eye contact. Psychomotor activity is normal. Mood is depressed. Affect is constricted. Thought process is lineal goal directed. Speech, rate, rhythm and volume are good. Thought content he denies any suicidal or homicidal ideas. He denied any hallucinations or delusions. Insight and judgment are limited. . LABORATORY STUDIES: CBC within normal limits. However his WBC was slightly high. Chemistries, CMP within normal limits. Toxicology was negative. Serology was negative for COVID-19. DIAGNOSIS: 1. mood disorder unspecified. 2. Rule out bipolar 2 disorder. PLAN: 1. Continue medications. 2. Continue Zyprexa 5 mg at night. 3. Depakote 500 mg at night. ESTIMATED LENGTH OF STAY: 3-4 days. TIME SPENT: Twenty-five minutes. Vital Signs Vital Signs Date Time Temp Pulse Resp B/P (MAP) Pulse Ox O2 Delivery O2 Flow Rate FiO2 07/13/20 06:31 97.7 81 12 109/77 (88) 99 Room Air Current Medications Current Medications Medications (Trade) Dose Ordered Sig/Tyler Route PRN Reason Start Time Stop Time Status Last Admin Dose Admin Acetaminophen (Tylenol Tab) 650 mg Q6HP PRN PO HEADACHE or DISCOMFORT 07/07/20 11:55 Al Hydrox/Mg Hydrox/Simethicone (Mylanta) 30 ml Q4HP PRN PO HEARTBURN/INDIGESTION 07/07/20 11:55 Divalproex Sodium (Depakote) 250 mg BID PO 07/08/20 09:00 07/13/20 08:06 Home Med (Med Rec Complete!) ASDIRECTED XX 07/07/20 11:15 07/07/20 11:17 DC Magnesium Hydroxide (Milk Of Magnesia) 30 ml DAILYPRN PRN PO CONSTIPATION 07/07/20 11:55 Olanzapine (ZyPREXA) 5 mg QHS PO 07/08/20 21:00 07/12/20 20:50 Trazodone HCl (Desyrel) 50 mg QHSP PRN PO INSOMNIA 07/07/20 11:55 Allergies Coded Allergies: No Known Allergies (Unverified , 02/23/20) CAMERON JOY MD Jul 13, 2020 10:48
[2020-07-13 16:00] VITALS: BP 144/71
[2020-07-13] MEDS: OLANZapine 5 MG TAB PO SCH (20:02)
[2020-07-14 06:48] VITALS: BP 135/79
[2020-07-14] MEDS: DIVALPROEX 250 MG TAB PO SCH (08:04)
--- NOTE | 2020-07-14 10:42 | MHDS ---
[facility] DISCHARGE SUMMARY DATE OF ADMISSION: 07/07/2020 DATE OF DISCHARGE: 07/14/2020 DIAGNOSIS: Mood disorder, unspecified, rule out bipolar II disorder. IDENTIFYING DATA: He is a 20-year-old male living with his friends who was admitted because of suicidal thoughts. He reportedly broke up with his girlfriend and told his mother that he wanted to kill himself. Mother called the police, and he was brought to the hospital. For details of HPI, past psychiatric history, medical history, social history, and substance abuse history, please refer to the initial evaluation. MENTAL STATUS EXAMINATION: Patient is moderately obese, neatly dressed, cooperative, made good eye contact. Psychomotor activity is normal. Mood is euthymic. Affect is full range. Thought process linear, goal directed. Thought content: Denied any suicidal or homicidal ideas. Perception: Denied any auditory or visual hallucinations. Insight and judgment are fair. LABORATORY DATA: CBC within normal limits. CMP within normal limits. Toxicology was negative. COURSE IN THE HOSPITAL: Patient initially was depressed, was showing some agitation, withdrawn. He was placed on Zyprexa 5 mg at night and Depakote 500 mg at night. He was also provided with individual, group, and milieu therapy. Patient slowly started coming out of his room, and his depression resolved. He made gradual recovery. He did not want increase of his medications. He denied any side effect of the medication. He had no suicidal or homicidal ideas at the time of discharge. Patient will go home. Follow up at [facility]. TIME SPENT: Less than 30 minutes.
[2020-07-14] MEDS ORDERED: DEPA250T32 PO (11:01)
[2020-07-14] MEDS ORDERED: OLAN5TAB PO (11:01)
== END 2020-07-14 11:40 | disposition home or self-care (01) | DRG 885 ==
LOC: M ED 08:29 → M ED INP 11:51 → M PSY 14:44
PROVIDERS: ADMIT Psychiatry & Neurology Psychiatry; ATTEND Psychiatry & Neurology Psychiatry
DX: F39 Unspecified mood [affective] disorder (principal); R45.851 Suicidal ideations; F31.81 Bipolar II disorder; E66.9 Obesity, unspecified; I10 Essential (primary) hypertension; F41.9 Anxiety disorder, unspecified; F17.200 Nicotine dependence, unspecified, uncomplicated

== ENCOUNTER 2020-12-12 00:16 | Emergency (ER) | payer MEDICARE, MEDICAID ==
[~2020-12-12] VITALS: Ht 188 cm; Wt 134.1 kg
[~2020-12-12 00:16] MED LIST changes: +DEPA250T32 PO; -OLAN15TA PO; +OLAN15TA13 PO; +OLAN1TAB16 PO
[2020-12-12 00:17] VITALS: BP 176/94
== END 2020-12-12 03:50 | disposition left against medical advice (07) ==
LOC: M ED 00:16
DX: Z53.21 Procedure and treatment not carried out due to patient leaving prior to being seen by health care provider (principal)

== ENCOUNTER → 2021-05-26 | Outpatient (REF) | payer MEDICARE, MEDICAID ==
[~2021-05-26] MED LIST changes: -LISI-898 PO; +LISI5TAB11 PO
[2021-05-27 11:43] LABS: HEMATOCRIT 47.5 % (42.0-52.0); HEMOGLOBIN 16.2 g/dl (13.5-17.5); MEAN CORPUSCULAR HEMOGLOBIN 30.5 pg (27.0-33.0); MEAN CORPUSCULAR HGB CONC 34.1 g/dl (32.0-36.5); MEAN CORPUSCULAR VOLUME 89.3 fl (80.0-96.0); PLATELET COUNT, AUTOMATED 386 10^3/uL (150-450); RED BLOOD COUNT 5.32 10^6/uL (4.30-6.10); WHITE BLOOD COUNT 12.3 10^3/uL (4.0-10.0)
[2021-05-27 12:19] LABS: ALBUMIN 4.1 GM/DL (3.2-5.2); ALT/SGPT 47 U/L (12-78); BILIRUBIN,TOTAL 0.3 MG/DL (0.2-1.0); BLOOD UREA NITROGEN 9 MG/DL (7-18); CALCIUM LEVEL 10.1 MG/DL (8.5-10.1); CARBON DIOXIDE LEVEL 23 MEQ/L (21-32); CHLORIDE LEVEL 107 MEQ/L (98-107); CHOLESTEROL LEVEL 205 MG/DL (<200); CHOLESTEROL RISK RATIO 4.456 (<5); CREATININE FOR GFR 0.78 MG/DL (0.70-1.30); FREE T4 0.91 NG/DL (0.76-1.46); GLOMERULAR FILTRATION RATE > 60.0 (>60); GLUCOSE, FASTING 77 MG/DL (70-100); HDL CHOLESTEROL 46 MG/DL (>40); LDL CHOLESTEROL 129 MG/DL (<100); NON-HDL-C 159 MG/DL; POTASSIUM SERUM 5.7 MEQ/L (3.5-5.1); SODIUM LEVEL 135 MEQ/L (136-145); TOTAL PROTEIN 7.4 GM/DL (6.4-8.2); TRIGLYCERIDES LEVEL 152 MG/DL (<150)
[2021-05-27 13:33] LABS: HEMOGLOBIN A1c 5.5 %
== END ==
LOC: M SFHCCLAY 13:58
PROVIDERS: ATTEND Nurse Practitioner Family
DX: F32.A Depression, unspecified (principal); Z13.1 Encounter for screening for diabetes mellitus; Z13.220 Encounter for screening for lipoid disorders

== ENCOUNTER → 2021-05-28 | Outpatient (CLI) | payer MEDICARE, MEDICAID | LOC: M LAB 09:04 | PROVIDERS: ATTEND Nurse Practitioner Family | DX: E87.5 Hyperkalemia (principal) ==

== ENCOUNTER 2021-06-08 10:23 | Emergency (ER) | payer MEDICARE, MEDICAID ==
[~2021-06-08] VITALS: Ht 188 cm; Wt 149.1 kg
[~2021-06-08 10:23] MED LIST changes: -D31000TA2 PO; +VITA100093 PO
[2021-06-08] MEDS ORDERED: NAPR-1182 (10:42)
[2021-06-08] MEDS ORDERED: ZOLO50TA (10:42)
[2021-06-08] MEDS ORDERED: DIVA250T67 (10:42)
[2021-06-08 13:54] VITALS: BP 142/70
== END 2021-06-08 13:56 | disposition home or self-care (01) ==
LOC: M ED 10:23
DX: S46.011A Strain of muscle(s) and tendon(s) of the rotator cuff of right shoulder, initial encounter (principal); M25.511 Pain in right shoulder; Y92.9 Unspecified place or not applicable; Y93.9 Activity, unspecified; Y99.9 Unspecified external cause status

== ENCOUNTER 2021-06-29 21:13 | Emergency (ER) | payer MEDICARE, MEDICAID ==
[~2021-06-29] VITALS: Ht 188 cm; Wt 147.7 kg
[~2021-06-29 21:13] MED LIST changes: +DIVA250T67; +NAPR-1182; +ZOLO50TA
[2021-06-29] MEDS ORDERED: ARIP1TAB6 (21:46)
[2021-06-29] MEDS ORDERED: PARO20TA3 (21:46)
[2021-06-29 21:48] VITALS: BP 143/81
== END 2021-06-30 00:15 | disposition left against medical advice (07) ==
LOC: M ED 21:13
DX: Z53.21 Procedure and treatment not carried out due to patient leaving prior to being seen by health care provider (principal)

== ENCOUNTER → 2021-10-20 | Outpatient (CLI) | payer MEDICARE, MEDICAID ==
[~2021-10-20] MED LIST changes: +ARIP1TAB6; +ISOVUE-300 61% 50ML VIAL As Ordered ONE; +LIDOCAINE 1% MDV 20ML VIAL As Ordered ONE; +PARO20TA3; +PROHANCE 279.3MG/ML 5ML VIAL As Ordered ONE
== END ==
LOC: M RADPRO 06:05
PROVIDERS: ATTEND Orthopaedic Surgery Hand Surgery
DX: M25.811 Other specified joint disorders, right shoulder (principal)
CPT/HCPCS: 23350; 73223; 77002; A9576; Q9967

== ENCOUNTER 2023-05-14 02:59 | Emergency (ER) | payer MEDICARE, MEDICAID ==
[~2023-05-14] VITALS: Ht 188 cm; Wt 147.6 kg
[~2023-05-14 02:59] MED LIST changes: -ISOVUE-300 61% 50ML VIAL As Ordered ONE; -LIDOCAINE 1% MDV 20ML VIAL As Ordered ONE; -PROHANCE 279.3MG/ML 5ML VIAL As Ordered ONE; +RISP-105; +RISP-105 PO; -RISP-8; -RISP-8 PO; +SENN-111 PO; -SENN18TA PO
[2023-05-14 03:00] VITALS: BP 164/81; TEMP 98.4; O2SAT 97
== END 2023-05-14 05:49 | disposition left against medical advice (07) ==
LOC: M ED 02:59
DX: Z53.21 Procedure and treatment not carried out due to patient leaving prior to being seen by health care provider (principal)

== ENCOUNTER → 2023-06-26 | Outpatient (REF) | payer MEDICARE, MEDICAID ==
[2023-06-26 19:01] LABS: BASO # 0.1 10^3/uL (0.0-0.2); BASO % 0.7 % (0.0-1.0); EOS # 0.2 10^3/uL (0.0-0.5); EOS % 2.4 % (0.0-3.0); HEMATOCRIT 46.5 % (42.0-52.0); HEMOGLOBIN 15.7 g/dl (13.5-17.5); LYMPH # 3.4 10^3/uL (1.5-5.0); LYMPH % 41.4 % (24.0-44.0); MEAN CORPUSCULAR HEMOGLOBIN 29.3 pg (27.0-33.0); MEAN CORPUSCULAR HGB CONC 33.8 g/dl (32.0-36.5); MEAN CORPUSCULAR VOLUME 86.9 fl (80.0-96.0); MONO % 11.7 % (2.0-8.0); NEUTROPHILS # 3.6 10^3/uL (1.5-8.5); NEUTROPHILS % 43.6 % (36.0-66.0); PLATELET COUNT, AUTOMATED 391 10^3/uL (150-450); RED BLOOD COUNT 5.35 10^6/uL (4.30-6.10); WHITE BLOOD COUNT 8.2 10^3/uL (4.0-10.0)
[2023-06-26 19:07] LABS: ALKALINE PHOSPHATASE 91 U/L (46-116); ALT/SGPT 24 U/L (7.0-40); AST/SGOT < 8 U/L (<34); BILIRUBIN,TOTAL 0.3 MG/DL (0.3-1.2); BLOOD UREA NITROGEN 9 MG/DL (9-23); CALCIUM LEVEL 9.9 MG/DL (8.5-10.1); CARBON DIOXIDE LEVEL 27 MMOL/L (20-31); CHLORIDE LEVEL 107 MMOL/L (98-107); CHOLESTEROL LEVEL 178 MG/DL (<200); CHOLESTEROL RISK RATIO 4.61 (<5); CREATININE FOR GFR 0.73 MG/DL (0.70-1.30); GLOMERULAR FILTRATION RATE > 60.0 (>60); GLUCOSE, FASTING 91 MG/DL (60-100); HDL CHOLESTEROL 38.6 MG/DL (>40); LDL CHOLESTEROL 108.8 MG/DL (<100); NON-HDL-C 139.4 MG/DL; POTASSIUM SERUM 5.1 MMOL/L (3.5-5.1); SODIUM LEVEL 138 MMOL/L (136-145); TOTAL PROTEIN 7.3 G/DL (5.7-8.2); TRIGLYCERIDES LEVEL 153 MG/DL (<150)
[2023-06-26 19:10] LABS: TOTAL 25(OH) VITAMIN D 19.5 NG/ML (20.0-100.0)
[2023-06-26 19:11] LABS: THYROID STIMULATING HORMONE 2.486 uIU/ML (0.55-4.78)
[2023-06-26 19:16] LABS: HEMOGLOBIN A1c 5.5 % (4.0-6.0)
== END ==
LOC: M LAB REF 17:18
PROVIDERS: ATTEND Nurse Practitioner Family
DX: E66.9 Obesity, unspecified (principal); E55.9 Vitamin D deficiency, unspecified; R53.83 Other fatigue; Z11.3 Encounter for screening for infections with a predominantly sexual mode of transmission; Z72.89 Other problems related to lifestyle; Z79.899 Other long term (current) drug therapy

== ENCOUNTER → 2024-10-22 | Outpatient (REF) | payer MEDICARE, MEDICAID ==
[~2024-10-22] MED LIST changes: -DEPA250T32 PO; +DIVA-65 PO; -OLAN15TA13 PO; +OLAN15TA69 PO; -SENN-111 PO; +SENN-165 PO
[2024-10-22 17:42] LABS: BASO # 0.1 10^3/uL (0.0-0.2); BASO % 0.8 % (0.0-1.0); EOS # 0.1 10^3/uL (0.0-0.5); EOS % 1.3 % (0.0-3.0); LYMPH # 3.0 10^3/uL (1.5-5.0); LYMPH % 30.5 % (24.0-44.0); MONO # 0.8 10^3/uL (0.0-0.8); MONO % 8.1 % (2.0-8.0); NEUTROPHILS # 5.8 10^3/uL (1.5-8.5); NEUTROPHILS % 58.9 % (36.0-66.0); PLATELET COUNT, AUTOMATED 424 10^3/uL (150-450)
[2024-10-22 17:55] LABS: ESTIMATED AVERAGE GLUCOSE 123.0 MG/DL (60-110)
[2024-10-22 18:00] LABS: CALCIUM LEVEL 9.6 MG/DL (8.5-10.1); CARBON DIOXIDE LEVEL 27 MMOL/L (20-31); CHLORIDE LEVEL 103 MMOL/L (98-107); CHOLESTEROL LEVEL 195 MG/DL (<200); CHOLESTEROL RISK RATIO 4.93 (<5); CREATININE FOR GFR 0.83 MG/DL (0.70-1.30); GLOMERULAR FILTRATION RATE > 90.0 (>60); LDL CHOLESTEROL 130.3 MG/DL (<100); NON-HDL-C 155.5 MG/DL; POTASSIUM SERUM 4.5 MMOL/L (3.5-5.1); SODIUM LEVEL 142 MMOL/L (136-145); TRIGLYCERIDES LEVEL 126 MG/DL (<150)
== END ==
LOC: M LAB REF 16:28
PROVIDERS: ATTEND Nurse Practitioner Family
DX: I10 Essential (primary) hypertension (principal); E66.813 Obesity, class 3; E78.2 Mixed hyperlipidemia; R53.83 Other fatigue; Z79.899 Other long term (current) drug therapy